=== PATIENT | male | born 1945 | race Caucasian/White ===

== ENCOUNTER 2018-07-05 04:47 | Inpatient (IN) ==
--- NOTE | 2018-06-24 16:08 | PAT Medication Instructions ---
Medication Instructions Date of Service June 24, 2018 Home Medications albuterol sulfate 1 inh INHALATION QID PRN aspirin 81 mg PO QAM atorvastatin 40 mg PO PM cholecalciferol (vitamin D3) 1,000 unit PO DAILY clopidogrel [Plavix] 75 mg PO QAM lisinopril 10 mg PO HS metoprolol tartrate 25 mg PO BID mometasone-formoterol [Dulera] 2 puff INHALATION BID nitroglycerin [Nitrostat] 1 tab SUBLINGUAL UD PRN omeprazole 20 mg PO QAM ASK your prescriber and surgeon aspirin 81 mg PO QAM clopidogrel [Plavix] 75 mg PO QAM DO NOT take the morning of surgery cholecalciferol (vitamin D3) 1,000 unit PO DAILY Take morning of surgery With a small sip of water, OTHERWISE NOTHING TO EAT OR DRINK AFTER MIDNIGHT: albuterol sulfate 1 inh INHALATION QID PRN (if needed, and bring with you to the hospital) metoprolol tartrate 25 mg PO BID mometasone-formoterol [Dulera] 2 puff INHALATION BID nitroglycerin [Nitrostat] 1 tab SUBLINGUAL UD PRN (if needed) omeprazole 20 mg PO QAM Take evening before surgery atorvastatin 40 mg PO PM lisinopril 10 mg PO HS albuterol sulfate 1 inh INHALATION QID PRN (if needed) metoprolol tartrate 25 mg PO BID mometasone-formoterol [Dulera] 2 puff INHALATION BID nitroglycerin [Nitrostat] 1 tab SUBLINGUAL UD PRN (if needed) Other Notes If you have any questions please call us at [phone] or [phone] or [phone] or [phone]
--- NOTE | 2018-06-27 08:54 | Anesthesiology Consultation ---
Date of Service June 27, 2018 Assessment & Plan (1) Encounter for pre-operative examination: Plan: -Patient seen by cardiology for rountine follow-up on 04/21 c/o CP with exertion. Ischemic workup done and was negative. -Per surgeon's office, Plavix to be held x 5 days prior to surgery. Cardiology made aware. Chart Review Chart Review: Acceptable Risk for Surgery and Patient seen in Pre Admission Testing Teaching & Discussion Instructed NPO after midnight before surgery, except medications with 15 cc of water. Medication instructions provided according to the PAT guidelines. History Surgery Operation Date: 07/05/18 07:00 Proposed Procedures p Laparoscopic-Assisted Right Colon Resection - Luis Alberto Leonardo MD, FACS Height/Weight Height: 5 ft 8 in Weight: 69.7 kg Allergies Allergy/AdvReac Type Severity Reaction Status Date / Time No Known Allergies Allergy Verified 06/24/18 08:25 Medications Home Medications Medication Instructions Recorded Confirmed Last Taken albuterol sulfate 1 inh INHALATION QID PRN 06/24/18 06/24/18 Unknown aspirin 81 mg PO QAM 06/24/18 06/24/18 Unknown atorvastatin 40 mg PO PM 06/24/18 06/24/18 Unknown cholecalciferol (vitamin D3) 1,000 unit PO DAILY 06/24/18 06/24/18 Unknown [Vitamin D3] clopidogrel [Plavix] 75 mg PO QAM 06/24/18 06/24/18 Unknown lisinopril 10 mg PO HS 06/24/18 06/24/18 Unknown metoprolol tartrate 25 mg PO BID 06/24/18 06/24/18 Unknown mometasone-formoterol [Dulera] 2 puff INHALATION BID 06/24/18 06/24/18 Unknown nitroglycerin [Nitrostat] 1 tab SUBLINGUAL UD PRN 06/24/18 06/24/18 Unknown omeprazole 20 mg PO QAM 06/24/18 06/24/18 Unknown Past Medical History Medical History CAD (coronary artery disease) Chronic obstructive pulmonary disease Stable on Dulera BID GERD (gastroesophageal reflux disease) History of skin cancer MOLE EXCISION Hyperlipidemia Hypertension Myocardial Infarction Inferior wall NE 06/2005, s/p PCI of prox and distal RCA with 2 PALMIRA. Inferior wall NE 03/2011, s/p balloon angioplasty of RCA. Past Surgical History Surgical History History of cardiac cath 2005, 2010 History of colonoscopy Past Anesthesia History No Hx of Anesthesia Complications and No Family Hx of Anesthesia Complications History of PONV No Motion Sickness Screening History of Motion Sickness: Yes Social History Smoking Status: Former smoker tobacco type: cigarettes Smoking cigarettes per day: HX OF 1PPD X20 YEARS, QUIT 6 YEARS AGO Do You Dip or Chew Tobacco: No Hx Alcohol Use: Yes Alcohol type: other alcohol intake frequency: a few times a month Hx Substance Use: No substance use type: does not use Exercise / Class Metabolic Activity II 4-5 Yardwork/Stairs/Walk up hill (Denies CP or SOB with yardwork/housework. No stairs at home.) Review of Systems Pt denies any recent chest pain, shortness of breath, palpitations, cough, fever or URI. Physical Exam Vital Signs BP: 125/76 P: 55bpm SPO2: 96% RA T: 97.9 F R: 18 ENMT Mouth: + dentures and + edentulous Thyromental Distance: > or= 3.5 Finger Breadths (3.5) Mallampati Class: II Neck normal visual inspection and + limited neck extension Respiratory normal respiratory effort Auscultation: lungs clear to auscultation bilaterally and + bronchovesicular breath sounds; no rales, no rhonchi and no wheezes Cardiovascular Rate/Rhythm: regular rate and regular rhythm Heart Sounds: no murmur Vessels: no carotid bruit Extremities: no edema Testing Electrocardiogram Date: 04/21/18 Findings: + SB @ (52) Echocardiogram Date: 04/25/18 EF: 55-59% Examination is adequate to evaluate the referral indication. LV cavity size is normal. The wall thickness is moderately increased in segments with normal wall motion. There is a moderate sized inferior and posterior basal wall motion abnormality with mild hypokinesis to akinesis of the segments. There is a small sized posterior scar. The regional left ventricular wall motion is otherwise normal. Grade 1 diastolic dysfunction. Mild aortic valve sclerosis is present. Mild secondary mitral regurg is present. Stress Test Date: 04/25/18 Type: nuclear Resting EF: 67% Myocardial perfusion imaging is normal. Overall left ventricular systolic function was normal without regional wall motion abnormalities. Other Testing Chest CT 04/23/18 Severe emphysema with areas of scarring within the lungs. Calcific lesions along the pleura may be due to to prior asbestos exposure or infection. Hypervascular liver lesions most likely represent hemangiomas. *Pt denies any recent infectious symptoms. Carotid Doppler 06/27/18 No hemodynamically significant stenosis seen within the carotid arteries. Laboratory Results Blood Type B Positive 06/27/18 09:10 Antibody Screen NEGATIVE 06/27/18 09:10 05/30/18 WBC: 7.52 H/H: 16.0/49.3 PLATELETS: 242 SODIUM: 141 POTASSIUM: 4.1 CHLORIDE: 103 CO2: 27 BUN: 10 CREATININE: 0.9 GLUCOSE: 117
[2018-06-27 10:30] LABS: Bilirubin Direct 0.1 mg/dl (0-0.2); Bilirubin,Total 0.4 mg/dl (0.2-1); Total Protein 7.2 gm/dl (6.4-8.2)
[2018-07-05] MEDS ORDERED: LR 15ML/HR IV SCH (06:00)
--- NOTE | 2018-07-05 06:18 | History & Physical Bridge Note ---
Date of Service July 05, 2018 History & Physical Bridge Note I have examined the patient, reviewed the History & Physical and in the interval since the performance of the History & Physical I have noted the following changes of clinical significance: no changes noted family at bedside all questions answered
[2018-07-05] MEDS ORDERED: LIDOCAINE HCL 2% 2 ML VIAL/AMP(20MG/ML) INFIL ONE (06:35)
[2018-07-05] MEDS ORDERED: NEOSTIGMINE METHYLSULFATE 5 MG/5 ML SYR ONE (06:35)
[2018-07-05] MEDS ORDERED: SUCCINYLCHOLINE CHLORIDE 20 MG/ML 10 ML VIAL ONE (06:35)
[2018-07-05] MEDS ORDERED: ONDANSETRON INJ 2 MG/ML 2 ML VIAL ONE (06:35)
[2018-07-05] MEDS ORDERED: PROPOFOL IV EMULSION 10 MG/ML 20 ML VIAL IV ONE ×2 (06:35→10:21)
[2018-07-05] MEDS ORDERED: DEXAMETHASONE SOD INJ 4 MG/ML VIAL ONE (06:35)
[2018-07-05] MEDS ORDERED: GLYCOPYRROLATE 0.2 MG/ML VIAL ONE (06:35)
[2018-07-05] MEDS ORDERED: CISATRACURIUM BESYLATE IV SOLN 2 MG/ML 10 ML VIAL IV ONE (06:35)
[2018-07-05] MEDS ORDERED: fentaNYL citrate 100 MCG/2 ML VIAL ONE ×2 (06:36→07:46)
[2018-07-05] MEDS ORDERED: MIDAZOLAM HCL 1 MG/ML 2ML VIAL ONE (06:36)
[2018-07-05] MEDS ORDERED: BUPIVACAINE 0.5 % 5 MG/1 ML MPF 30ML VIAL ONE (06:59)
[2018-07-05] MEDS ORDERED: PHENYLEPHRINE 100MCG/ML 5ML SYR ONE (07:34)
[2018-07-05] MEDS ORDERED: cefOXitin 2,000 MG in DEXTROSE 5% 50 ML IV STA (07:56)
[2018-07-05] MEDS ORDERED: HYDROmorphone INJ 2 MG/ML SYR/VIAL ONE (08:00)
[2018-07-05] MEDS ORDERED: cefOXitin 2,000 MG in DEXTROSE 5% 50 ML IV SCH (08:15)
[2018-07-05] MEDS ORDERED: ePHEDrine sulfate 50 MG/ML AMP IV PRN (08:52)
[2018-07-05] MEDS ORDERED: ONDANSETRON INJ 2 MG/ML 2 ML VIAL IV PRN (08:52)
[2018-07-05] MEDS ORDERED: HYDROmorphone INJ 1 MG/ML SYRINGE IV PRN (08:52)
[2018-07-05] MEDS ORDERED: ATROPINE SULFATE 0.1 MG/ML 10ML SYR IV PRN (08:52)
[2018-07-05] MEDS ORDERED: ALBUMIN HUMAN 5% 12.5 GM/250 ML VIAL IV ONE (09:19)
[2018-07-05] MEDS ORDERED: ePHEDrine sulfate 50 MG/ML AMP ONE (09:26)
[2018-07-05] MEDS ORDERED: PHENYLEPHRINE HCL 10 MG/ML VIAL ONE (09:26)
[2018-07-05] MEDS ORDERED: ALBUTEROL HFA INHALER 8.5 GM ONE (09:26)
--- NOTE | 2018-07-05 10:37 | Post Operative Brief Note ---
Immediate Post Op Note v1 Date of Surgery July 05, 2018 Pre & Post Diagnosis Operation Date: 07/05/18 07:00 Pre-Op Diagnosis: Right Colon Mass Post-Op Diagnosis: Right Colon Mass Procedure Operation Date: 07/05/18 07:00 Actual Procedures p Open Right Colon Resection, laparoscopy, hepatic flexure, part of transverse colon - Luis Alberto Leonardo MD, FACS Surgeon Luis Alberto Leonardo MD, FACS Manager Of Project Management b gerry silver Estimated Blood Loss 500 Findings Consistent with Post-Op Diagnosis Drains Dandy Drain and Iniguez Catheter
--- NOTE | 2018-07-05 10:38 | Post Operative Brief Note ---
Immediate Post Op Note v1 Date of Surgery July 05, 2018 Pre & Post Diagnosis Operation Date: 07/05/18 07:00 Pre-Op Diagnosis: Right Colon Mass Post-Op Diagnosis: Right Colon Mass Procedure Operation Date: 07/05/18 07:00 Actual Procedures p Open Right Colon Resection, laparoscopy, hepatic flexure, part of transverse colon - Luis Alberto Leonardo MD, FACS Surgeon Luis Alberto Leonardo MD, FACS Milking Machine Technician b gerry silver Estimated Blood Loss 500 Findings Consistent with Post-Op Diagnosis Drains Dandy Drain and Iniguez Catheter
--- NOTE | 2018-07-05 11:07 | Operative Report ---
Post Operative Report Pre & Post Diagnosis Operation Date: 07/05/18 07:00 Pre-Op Diagnosis: Right Colon Mass Post-Op Diagnosis: Right Colon Mass Procedure Operation Date: 07/05/18 07:00 Actual Procedures p Open Right Colon Resection, laparoscopy, hepatic flexure, part of transverse colon - Luis Alberto Leonardo MD, FACS The patient was brought into the operating theater under general anesthesia Iniguez catheter inserted antibiotics given a timeout was had an incision was made above the umbilicus sufficient enough to place a Veress needle followed by CO2 followed by 5 mm trocar point entry inspected no injury identified we then visualized the diaphragmatic surfaces liver both gutters down in the pelvic area there is no fluid no evidence of any metastatic disease at this point we removed the laparoscope and enlarged the incision at the bedside approximately 4 inches deepened through subcutaneous tissue into the abdomen once we were in the abdomen we could feel a very hard mass right colon it was nearly impossible to move it we also extended and palpated the mass and it seemed to be going towards the root of air mesentery really hard to define the limits at this point we then placed the Bookwalter were able then to divide the white line of Toldt laterally start delivering the mass went down towards the diaphragmatic surface of the liver surface with some adhesions to the liver were taken down we then elevated from the second portion of the duodenum which was fairly free but going down towards the floor portion it was strictly adherent this point we then decided to use a different avenue to resected when done in the freed the peritoneum down the pelvic brim were able to identify the ureter were placed in traction with a vessel loop and the ureter itself in the midportion was started to be encased by this inflammatory process or malignancy we were able to free it up usually pleasant dissection and did not seem to be directly related to the hard mass and may be in we then divided the terminal ileum approximately 5 inches from the ileocecal valve with a DINA stapler divided the mesentery to try to approach this mass from the undersurface which we had some difficulty just moving in utilizing this mass is characteristic. We at this point then decided to a were from the transverse colon area where we were able to divide the omentum and the transverse colon ligated with 2-0 silk then just right of the middle colic we were able to divide the DINA to resect this: We then continued down to the mesentery of the colon down to the root of the mesentery where the mass was firmly adherent and seemed to be almost gone inside the pancreas is grossly while we are and scored both areas of the mesentery from inferiorly and posterior superiorly we then went down towards the ligament of Treitz we can identify the duodenum and placed the finger there and there was marked inflammation really sclerotic areas onto the duodenum itself in the third portion not of all the ligament of Treitz we then start taken down the root of the mesentery that was going into the area that we had outlined scarring the peritoneum over nearly towards the identified the splenic vein stayed away from it stayed on top of the pancreas some bleeders going down towards the root of mesentery toward we dissection was taken out we ligated. We were to the right of the SMA. The colon which this was stated we took the middle colic we left middle colic where the right of it was a viable throughout the procedure then we worked from both ways from the middle and laterally to finally we were able to free up the mass total from the duodenum and pancreatic area fibrotic sheath was drawn the second portion of the duodenum pretty much we used a knife to free that up I took a biopsy of that area and it showed that this was basically no evidence of malignancy just a very sclerotic process. 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 Audible pulsation but there was some distal ischemia think this was all related that sacrifice of the mesentery that we had taken. We resected the small bowel x2 times further areas that seemed ischemic and we did anastomosis left first closing the mesentery to this loops of bowel 3 -0 suture staying away from the vessels oversewed the 2 staple line with 3-0 silk suture and a [id number] anastomosis 3-0 silk through a chromic inner layer the small bowel and one area appeared to be little ischemia proximal to the staple line and the anastomosis but it was very hard to tell therefore I elected to place some fat around both of the anastomosis time it loosely with 3- 0 silk anastomosis was placed we checked the area for hemostasis some venous bleeders were again appreciated when the patient was awakened up and started to block we oversewed with 3-0 silk suture I elected to drain a German drain in the top of the duodenum and the pancreatic area taken out to the right upper quadrant port central skin edge with 3-0 silk suture the abdomen was closed with a running #1 PDS one cephalad one could that time the middle piece of bowel 19 Dandy was placed in the subcu tension distal approximately 2-0 silk nettie for skin edges dressing was applied procedure was tolerated well by the patient estimated blood loss approximately 500 cc addendumB Rodrigo KESSLER was present throughout the procedure helped with the exposure retraction and closure Surgeon Luis Alberto Leonardo MD, FACS Dovetail Machine Operator b rodrigo kessler Estimated Blood Loss 500 Findings Consistent with Post-Op Diagnosis Specimens right colon hep flexure to middle colic, small bowel resection x 3 Description of Procedure merda I attest to the content of the Intraoperative Record and any orders documented therein. Any exceptions are noted below.
[2018-07-05] MEDS ORDERED: SODIUM CHLORIDE 0.9% 1000ML 1,000 ML IV ONE (11:15)
[2018-07-05] MEDS: fentaNYL citrate 100 MCG/2 ML VIAL IV PRN ×4 (11:26→11:47)
--- NOTE | 2018-07-05 11:55 | Anesthesiology Progress Note ---
Date of Service July 05, 2018 Anesthesia Post Procedure Vital Signs Vital Signs: Temp Pulse Pulse Resp BP Pulse Ox 07/05/18 11:50 85 14 100/66 96 07/05/18 11:40 81 22 100/63 96 07/05/18 11:30 79 15 97/62 L 97 07/05/18 11:20 80 19 99/62 L 96 07/05/18 11:10 86 21 94/66 L 96 07/05/18 11:00 89 13 99/68 L 97 07/05/18 10:54 36.0 C L 94 H 20 98/71 L 95 07/05/18 05:25 36.4 C L 61 18 131/86 96 Pain Intensity Bilateral Abdomen: Pain Intensity: 5 Notes Mental Status: alert / awake / arousable and participated in evaluation Nausea / Vomiting: adequately controlled Pain: adequately controlled Airway Patency, RR, SpO2: stable & adequate BP & HR: stable & adequate Hydration State: stable & adequate Anesthetic Complications: no major complications apparent and Pt Satisfied with anesthetic care Notes: The patient is s/p lap to open colon resection with Dr. Leonardo. The patient is doing well in recovery. Pain is being managed adequately with IV fentanyl and Dilaudid. The patient's BPs have remained stable in the low 100s/ 60s which is close to his baseline as BP prior to induction was 98/70. The patient had 500cc EBL, he has received 3300cc crystalloid and 500cc 5 % Albumin. Hemoglobin/Hematocrit pending, however starting Hgb was 16.0. The patient will be transferred to telemetry for closer monitoring.
[2018-07-05 12:01] LABS: Hemoglobin 11.6 g/dL (14.0-18.0)
[2018-07-05] MEDS ORDERED: NITROGLYCERIN SL 0.4 MG/TAB TAB SL PRN (13:30)
[2018-07-05] MEDS ORDERED: NALOXONE HCL 0.4 MG/1 ML VIAL/CARP IV PRN (13:30)
[2018-07-05] MEDS: LACTATED RINGER'S 1,000 ML IV SCH ×2 (13:30→19:30)
[2018-07-05] MEDS ORDERED: ALBUTEROL HFA 8 GM INHALER INH PRN (14:00)
[2018-07-05] MEDS: PANTOprazole 40 MG in SYRINGE 0 ML IV SCH (14:02)
[2018-07-05] MEDS: cefOXitin 2,000 MG in DEXTROSE 5% 50 ML IV SCH ×2 (14:02→20:05)
[2018-07-05] MEDS ORDERED: SODIUM CHLORIDE 0.9% 250 ML IV PRN (14:34)
[2018-07-05] MEDS: SODIUM CHLORIDE 0.9% 1000ML 1,000 ML IV SCH (15:00)
[2018-07-05] MEDS: MoRPHine SULFATE PCA 50 MG/50ML IV PRN ×2 (15:11→19:23)
[2018-07-05] MEDS: METOPROLOL TARTRATE 25 MG TAB PO SCH (20:06)
[2018-07-05 22:12] LABS: Hematocrit (blood only) 36.2 % (42-52); Hemoglobin 11.7 g/dL (14.0-18.0)
[2018-07-06] MEDS: LACTATED RINGER'S 1,000 ML IV SCH ×4 (02:24→23:28)
[2018-07-06] MEDS: cefOXitin 2,000 MG in DEXTROSE 5% 50 ML IV SCH ×4 (02:25→20:51)
[2018-07-06 07:11] LABS: Basophils # (auto) 0.01 K/uL (0-0.2); Basophils % (auto) 0.1 %; Hematocrit (blood only) 31.4 % (42-52); Hemoglobin 10.2 g/dL (14.0-18.0); Immature Granulocytes # (auto) 0.04 K/uL (0.00-0.02); Immature Granulocytes % (auto) 0.3 %; Lymphocytes # (auto) 0.99 K/uL (1.2-3.4); Lymphocytes % (auto) 6.8 %; Mean Corpuscular Hgb Conc 32.5 g/dL (32-36); Mean Corpuscular Volume 77.3 fL (80-100); Mean Platelet Volume 10.1 fL (7.4-10.4); Monocytes # (auto) 1.15 K/uL (0.11-0.59); Monocytes % (auto) 7.9 %; Neutrophils # (auto) 12.31 K/uL (1.4-6.5); Neutrophils % (auto) 84.9 %; Platelet Count 197 K/uL (130-400); RDW Coefficient of Variation 15.6 % (11.5-14.5); Red Blood Count 4.06 M/uL (4.7-6.1)
[2018-07-06] MEDS: MoRPHine SULFATE PCA 50 MG/50ML IV PRN (07:26)
[2018-07-06 07:45] LABS: BUN Creatinine Ratio 20.7 (10-20); Calcium 7.8 mg/dl (8.5-10.1); Creatinine Clr Calc Pharmacy 41.3 ml/min; Est GFR (African American) 52.4; Est GFR (Non-African American) 45.2; Potassium 4.6 mmol/L (3.5-5.1)
--- NOTE | 2018-07-06 08:21 | Anesthesiology Progress Note ---
Date of Service July 06, 2018 Anesthesia Post Procedure Vital Signs Vital Signs: Temp Pulse Pulse Resp BP Pulse Ox 07/06/18 06:41 36.9 C 73 18 118/70 94 07/06/18 02:48 36.9 C 77 18 109/70 94 07/06/18 00:05 36.8 C 79 18 111/66 97 07/05/18 19:48 36.8 C 92 H 17 102/66 97 07/05/18 15:28 36.4 C L 92 H 17 105/70 97 07/05/18 15:00 88 14 103/70 97 07/05/18 14:30 88 18 106/71 95 07/05/18 13:56 89 16 104/67 95 07/05/18 13:48 92 H 07/05/18 13:30 36.2 C L 88 16 106/69 94 07/05/18 12:50 85 20 98/66 L 97 07/05/18 12:40 84 15 101/66 97 07/05/18 12:30 85 15 96/69 L 95 07/05/18 12:20 86 17 107/59 L 96 07/05/18 12:10 85 17 106/59 L 96 07/05/18 12:00 36.2 C L 85 22 119/64 96 07/05/18 11:50 85 14 100/66 96 07/05/18 11:40 81 22 100/63 96 07/05/18 11:30 79 15 97/62 L 97 07/05/18 11:20 80 19 99/62 L 96 07/05/18 11:10 86 21 94/66 L 96 07/05/18 11:00 89 13 99/68 L 97 07/05/18 10:54 36.0 C L 94 H 20 98/71 L 95 Pain Intensity Bilateral Abdomen: Pain Intensity: 0 Notes Mental Status: alert / awake / arousable Patient Amnestic to Procedure: Yes Nausea / Vomiting: adequately controlled Pain: adequately controlled Airway Patency, RR, SpO2: stable & adequate BP & HR: stable & adequate Hydration State: stable & adequate Anesthetic Complications: no major complications apparent and Pt Satisfied with anesthetic care
[2018-07-06] MEDS: METOPROLOL TARTRATE 25 MG TAB PO SCH ×2 (08:45→20:51)
[2018-07-06] MEDS ORDERED: ASPIRIN 81 MG ECTAB PO SCH (09:00)
--- NOTE | 2018-07-06 09:43 | Surgery Progress Note ---
Date of Service July 06, 2018 Assessment & Plan (1) Colonic mass: POD 1 right colectomy, partial SB rsxn seen with Dr. Leonardo keep NG, duggan, RN ELIGIBILITY H&H down slightly, continue to monitor UOP adequate Subjective no complaints, pain control ok Physical Exam 2 Vital Signs (Past 24 Hours): Last Vital Signs Temp 36.9 C 07/06/18 06:41 Pulse 73 07/06/18 06:41 Resp 18 07/06/18 06:41 BP 118/70 07/06/18 06:41 Pulse Ox 94 07/06/18 06:41 Gastrointestinal (Abdomen): Inspection/Auscultation: + abdominal surgical incision (dressing dry); abdomen not distended Percussion/Palpation: abdomen soft UOP 300 AMPARO 100
[2018-07-06] MEDS: PANTOprazole 40 MG in SYRINGE 0 ML IV SCH (11:20)
--- NOTE | 2018-07-06 12:16 | Consultation ---
Date of Consultation July 05, 2018 Assessment & Plan (1) Acute intestinal ischemia: At this point there is no intervention needed for the inflow. There is excellent Doppler signals heard in the superior mesenteric artery and the arcades of the viable section. We agree with the plans of resecting the discolored portion of small bowel prior to doing the anastomosis. Thank you very much for letting us participate in the care of this patient. History of Present Illness Reason for Consultation: Ischemic bowel. Attending Physician: Luis Alberto Leonardo MD, FACS History of Present Illness This was an intraoperative consultation on a 73-year-old male who is undergoing an excision of a large mass involving his retroperitoneum and mesentery. There is a question of intestinal ischemia in regards to arterial inflow. Allergies Allergy/AdvReac Type Severity Reaction Status Date / Time No Known Allergies Allergy Verified 07/05/18 05:21 Home Medications Home Medications Medication Instructions Recorded Confirmed Type albuterol sulfate 1 inh INHALATION QID PRN 06/24/18 07/05/18 History aspirin 81 mg PO QAM 06/24/18 07/05/18 History atorvastatin 40 mg PO PM 06/24/18 07/05/18 History cholecalciferol (vitamin D3) 1,000 unit PO DAILY 06/24/18 07/05/18 History [Vitamin D3] clopidogrel [Plavix] 75 mg PO QAM 06/24/18 07/05/18 History lisinopril 10 mg PO HS 06/24/18 07/05/18 History metoprolol tartrate 25 mg PO BID 06/24/18 07/05/18 History mometasone-formoterol [Dulera] 2 puff INHALATION BID 06/24/18 07/05/18 History nitroglycerin [Nitrostat] 1 tab SUBLINGUAL UD PRN 06/24/18 07/05/18 History omeprazole 20 mg PO QAM 06/24/18 07/05/18 History erythromycin 1,000 mg PO DIRECTED 07/05/18 07/05/18 History neomycin 1,000 mg PO DIRECTED 07/05/18 07/05/18 History Patient History Medical History CAD (coronary artery disease) Chronic obstructive pulmonary disease Stable on Dulera BID GERD (gastroesophageal reflux disease) History of skin cancer MOLE EXCISION Hyperlipidemia Hypertension Myocardial Infarction Inferior wall [place] 06/2005, s/p PCI of prox and distal RCA with 2 PALMIRA. Inferior wall LA 03/2011, s/p balloon angioplasty of RCA. Surgical History History of cardiac cath 2005, 2010 History of colonoscopy Social History Current Living Situation: Spouse Other Information That Helps Us Care for You: No Feels Safe at Home: Yes Safety Concerns: Feels Safe At This Time Smoking Status: Former smoker Do You Dip or Chew Tobacco: No Hx Alcohol Use: Yes Alcohol type: other Alcohol Intake Frequency: a few times a month Hx Substance Use: No Beliefs That Will Affect Care: None Preferred Language: Scottish Communication Ability: Effective Hot Patcher Required: No Review of Systems Unobtainable Physical Exam 2 Vital Signs (Past 24 Hours): Last Vital Signs Temp 36.8 C 07/06/18 10:50 Pulse 54 L 07/06/18 10:50 Resp 16 07/06/18 10:50 BP 105/64 07/06/18 10:50 Pulse Ox 96 07/06/18 10:50 The patient is under general anesthesia with an open laparotomy incision. At this point after the intestines were warmed the proximal small bowel was viable. There is excellent Doppler signals heard in the superior mesenteric artery as well as the arcades and mesenteric border of the viable bowel. There is approximately 100 cm distally of small bowel that appeared purplish with poor Doppler signals. The majority of small bowel was viable.
[2018-07-06 15:00] LABS: Hematocrit (blood only) 30.2 % (42-52); Hemoglobin 9.7 g/dL (14.0-18.0)
[2018-07-07] MEDS: cefOXitin 2,000 MG in DEXTROSE 5% 50 ML IV SCH ×4 (01:28→22:11)
[2018-07-07 04:53] LABS: Basophils # (auto) 0.01 K/uL (0-0.2); Basophils % (auto) 0.1 %; Eosinophils # (auto) 0.11 K/uL (0-0.5); Eosinophils % (auto) 0.9 %; Hematocrit (blood only) 29.4 % (42-52); Hemoglobin 9.5 g/dL (14.0-18.0); Immature Granulocytes # (auto) 0.03 K/uL (0.00-0.02); Immature Granulocytes % (auto) 0.2 %; Lymphocytes # (auto) 1.71 K/uL (1.2-3.4); Lymphocytes % (auto) 14.2 %; Mean Corpuscular Hgb Conc 32.3 g/dL (32-36); Mean Corpuscular Volume 77.8 fL (80-100); Mean Platelet Volume 10.1 fL (7.4-10.4); Monocytes # (auto) 1.04 K/uL (0.11-0.59); Monocytes % (auto) 8.6 %; Neutrophils # (auto) 9.15 K/uL (1.4-6.5); Platelet Count 162 K/uL (130-400); RDW Coefficient of Variation 15.7 % (11.5-14.5); RDW Standard Deviation 44.5 fL (36.4-46.3); Red Blood Count 3.78 M/uL (4.7-6.1); White Blood Count 12.05 K/uL (4.8-10.8)
[2018-07-07 05:22] LABS: BUN Creatinine Ratio 17.5 (10-20); Calcium 7.7 mg/dl (8.5-10.1); Creatinine Clr Calc Pharmacy 53.3 ml/min; Est GFR (African American) 71.5; Est GFR (Non-African American) 61.7; Potassium 4.1 mmol/L (3.5-5.1)
[2018-07-07] MEDS: LACTATED RINGER'S 1,000 ML IV SCH ×3 (05:58→22:07)
[2018-07-07] MEDS: ASPIRIN 81 MG CHEW PO SCH (08:04)
[2018-07-07] MEDS: METOPROLOL TARTRATE 25 MG TAB PO SCH ×2 (08:05→22:08)
--- NOTE | 2018-07-07 10:04 | Surgery Progress Note ---
Date of Service July 07, 2018 Assessment & Plan (1) Colonic mass: POD 2 right colectomy, partial SB rsxn seen this AM by Dr. Leonardo keep NG until passing flatus H&H down slightly, continue to monitor DRAIN FROM SUB CUT REMOVED Subjective sitting in chair, feeling better, no flatus Physical Exam 2 Vital Signs (Past 24 Hours): Last Vital Signs Temp 36.6 C 07/07/18 07:48 Pulse 77 07/07/18 07:48 Resp 18 07/07/18 07:48 BP 135/80 07/07/18 07:48 Pulse Ox 95 07/07/18 07:48 Gastrointestinal (Abdomen): Inspection/Auscultation: + abdominal surgical incision (dressing dry); abdomen not distended AMPARO 50 becoming more serous UOP 950 NG 200
[2018-07-07] MEDS: PANTOprazole 40 MG in SYRINGE 0 ML IV SCH ×2 (12:03→22:07)
[2018-07-07] MEDS: SODIUM CHLORIDE 0.9% 1000ML 1,000 ML IV SCH ×2 (12:09→13:39)
[2018-07-07] MEDS: MOMETASONE/FORMOTEROL INH SCH (22:08)
[2018-07-08] MEDS: cefOXitin 2,000 MG in DEXTROSE 5% 50 ML IV SCH ×4 (02:04→20:16)
[2018-07-08] MEDS: LACTATED RINGER'S 1,000 ML IV SCH ×3 (02:06→20:16)
[2018-07-08 07:39] LABS: Basophils # (auto) 0.03 K/uL (0-0.2); Basophils % (auto) 0.3 %; Eosinophils # (auto) 0.32 K/uL (0-0.5); Eosinophils % (auto) 3.1 %; Hematocrit (blood only) 30.7 % (42-52); Hemoglobin 10.1 g/dL (14.0-18.0); Immature Granulocytes # (auto) 0.03 K/uL (0.00-0.02); Immature Granulocytes % (auto) 0.3 %; Lymphocytes # (auto) 1.17 K/uL (1.2-3.4); Lymphocytes % (auto) 11.3 %; Mean Corpuscular Hgb Conc 32.9 g/dL (32-36); Mean Corpuscular Volume 77.3 fL (80-100); Monocytes # (auto) 0.82 K/uL (0.11-0.59); Monocytes % (auto) 7.9 %; Neutrophils # (auto) 7.96 K/uL (1.4-6.5); Neutrophils % (auto) 77.1 %; Platelet Count 174 K/uL (130-400); RDW Coefficient of Variation 15.1 % (11.5-14.5); Red Blood Count 3.97 M/uL (4.7-6.1); White Blood Count 10.33 K/uL (4.8-10.8)
[2018-07-08 08:13] LABS: BUN Creatinine Ratio 16.9 (10-20); Creatinine Clr Calc Pharmacy 69.7 ml/min; Est GFR (African American) 97.2; Est GFR (Non-African American) 83.8; Potassium 3.7 mmol/L (3.5-5.1)
[2018-07-08] MEDS: PANTOprazole 40 MG in SYRINGE 0 ML IV SCH ×2 (08:20→20:17)
[2018-07-08] MEDS: METOPROLOL TARTRATE 25 MG TAB PO SCH ×2 (08:21→20:18)
[2018-07-08] MEDS: ASPIRIN 81 MG CHEW PO SCH (08:21)
[2018-07-08] MEDS: MOMETASONE/FORMOTEROL INH SCH ×2 (08:21→20:17)
--- NOTE | 2018-07-08 08:24 | Surgery Progress Note ---
Date of Service July 08, 2018 Assessment & Plan (1) Colonic mass: POD 3 right colectomy, partial SB rsxn seen with Dr. Leonardo d/Geetha Sanon H&H stable 03/15, Cr normalized PT/OT clear liquids, IV decreased to 80 cc/hr will remove drain later today Subjective no complaints, passing flatus Physical Exam 2 Vital Signs (Past 24 Hours): Last Vital Signs Temp 36.6 C 07/08/18 07:32 Pulse 81 07/08/18 07:32 Resp 18 07/08/18 07:32 BP 148/87 H 07/08/18 07:32 Pulse Ox 92 07/08/18 07:32 Gastrointestinal (Abdomen): Inspection/Auscultation: + abdomen distended ( minimal) Percussion/Palpation: abdomen soft UOP 800 Dandy 50 cc, serosang
[2018-07-08] MEDS: TAMSULOSIN HCL 0.4 MG CAP PO SCH (12:59)
[2018-07-08] MEDS: SODIUM CHLORIDE 0.9% 1000ML 1,000 ML IV SCH (20:13)
[2018-07-09] MEDS: cefOXitin 2,000 MG in DEXTROSE 5% 50 ML IV SCH (02:18)
[2018-07-09 07:07] LABS: Basophils # (auto) 0.02 K/uL (0-0.2); Basophils % (auto) 0.2 %; Eosinophils # (auto) 0.21 K/uL (0-0.5); Eosinophils % (auto) 2.1 %; Hematocrit (blood only) 33.9 % (42-52); Hemoglobin 11.3 g/dL (14.0-18.0); Immature Granulocytes # (auto) 0.04 K/uL (0.00-0.02); Immature Granulocytes % (auto) 0.4 %; Lymphocytes # (auto) 0.93 K/uL (1.2-3.4); Lymphocytes % (auto) 9.4 %; Mean Corpuscular Hgb Conc 33.3 g/dL (32-36); Mean Corpuscular Volume 76.5 fL (80-100); Monocytes # (auto) 0.67 K/uL (0.11-0.59); Monocytes % (auto) 6.7 %; Neutrophils # (auto) 8.06 K/uL (1.4-6.5); Neutrophils % (auto) 81.2 %; Platelet Count 188 K/uL (130-400); RDW Standard Deviation 42.4 fL (36.4-46.3); Red Blood Count 4.43 M/uL (4.7-6.1); White Blood Count 9.93 K/uL (4.8-10.8)
[2018-07-09 07:45] LABS: BUN Creatinine Ratio 15.1 (10-20); Creatinine Clr Calc Pharmacy 65.2 ml/min; Est GFR (African American) 93.4; Est GFR (Non-African American) 80.6; Potassium 3.5 mmol/L (3.5-5.1)
--- NOTE | 2018-07-09 08:02 | Surgery Progress Note ---
Date of Service July 09, 2018 Assessment & Plan (1) Colonic mass: POD 4 gi function and peristalsis slow will need to watch closely check prp d/c mefoxin increase iv fluids Dr Casiano covering weekend POD 3 right colectomy, partial SB rsxn seen with Dr. Leonardo d/c Geetha HAGAN H&H stable 03/15, Cr normalized PT/OT clear liquids, IV decreased to 80 cc/hr will remove drain later today Subjective feels ok tolerated diet yesterday had multiple loose stools as expected some abd pain Physical Exam 2 Vital Signs (Past 24 Hours): Last Vital Signs Temp 36.7 C 07/09/18 07:07 Pulse 104 H 07/09/18 07:07 Resp 18 07/09/18 07:07 BP 104/72 07/09/18 07:53 Pulse Ox 92 07/09/18 07:07 Physical Exam: lalert coherent in no distress abd pain with movement Gastrointestinal (Abdomen): distended more so than yesterday no loc tendernss incision intact had some serous drainage from conrad drain site Results & Data Laboratory Results noted will check prp
[2018-07-09] MEDS: MOMETASONE/FORMOTEROL INH SCH ×2 (08:10→19:49)
[2018-07-09] MEDS: ONDANSETRON INJ 2 MG/ML 2 ML VIAL IV PRN ×2 (08:10→13:09)
[2018-07-09] MEDS: METOPROLOL TARTRATE 25 MG TAB PO SCH ×2 (08:10→19:50)
[2018-07-09] MEDS: PANTOprazole 40 MG in SYRINGE 0 ML IV SCH ×2 (08:10→19:49)
[2018-07-09] MEDS: TAMSULOSIN HCL 0.4 MG CAP PO SCH (08:11)
[2018-07-09] MEDS: ASPIRIN 81 MG CHEW PO SCH (08:11)
--- NOTE | 2018-07-09 10:13 | Surgery Progress Note ---
Date of Service July 09, 2018 doing fine, no abdominal pain, passed gas and BM, Assessment & Plan (1) Colonic mass: doing fine, continue treatment, will F/u Physical Exam 2 Vital Signs (Past 24 Hours): Last Vital Signs Temp 36.7 C 07/09/18 07:07 Pulse 104 H 07/09/18 07:07 Resp 18 07/09/18 07:07 BP 104/72 07/09/18 07:53 Pulse Ox 92 07/09/18 07:07 Constitutional: WD/WN, vitals as above Neck: trachea midline, no thyromegaly Respiratory: normal respiratory effort, lungs clear to auscultation Cardiovascular: RRR, no murmur, no edema Gastrointestinal (Abdomen): Percussion/Palpation: abdomen soft NT, ND , incision intact Neurologic: awake Psychiatric: Orientation: alert and oriented x 3 Results & Data Laboratory Results Abnormal lab results 07/09/18 07/09/18 Range/Units 06:43 06:43 RBC 4.43 L (4.7-6.1) M/uL Hgb 11.3 L (14.0-18.0) g/dL Hct 33.9 L (42-52) % MCV 76.5 L (80-100) fL RDW Coeff of [place] 15.0 H (11.5-14.5) % Immature Gran # (Auto) 0.04 H (0.00-0.02) K/uL Neut # (Auto) 8.06 H (1.4-6.5) K/uL Lymph # (Auto) 0.93 L (1.2-3.4) K/uL [place] # (Auto) 0.67 H (0.11-0.59) K/uL Glucose 110 H (70-99) mg/dl Calcium 8.0 L (8.5-10.1) mg/dl
--- NOTE | 2018-07-09 10:56 | XRay Report ---
XR abdomen 2V w PA chest HISTORY: 73 years-old Male post op lack peristalsis acute postoperative abdominal pain COMPARISON: CT abdomen and pelvis 06/03/2018 TECHNIQUE: PA view the chest with erect and supine views of the abdomen FINDINGS: Cardiac silhouette is enlarged, unchanged. Right Bochdalek hernia with calcified pleural plaques rede monstrated. Cardiac silhouette is mildly enlarged. Left greater than right bibasilar opacities are no kris. There is no pneumothorax, large pleural effusion or overt pulmonary edema. Degenerative changes of the shoulders and spine. Anterior midline skin nettie are noted. Dilated air-filled loops of small and large bowel with small bowel loops measuring up to 5.0 cm transversely. The stomach is also moderately distended. Large bow el loops measure up to 6.7 cm transversely. No definite pneumatosis, pneumoperitoneum or urolith. No acute fracture. IMPRESSION: 1. Air distended small and large bowel loops are suggestive of postoperative ileus. Continued follow- up recommended. 2. Bilateral pleural plaques with left greater than right bibasilar opacities suggestive of scarring/ atelectasis. Superimposed pneumonitis is considered less likely. 3. Cardiomegaly. 4. Small right Bochdalek hernia. The above report was generated using voice recognition software. It may contain grammatical, syntax o r spelling errors. Electronically signed by: Jonn Garner M.D. 07/09/2018 10:55 AM
[2018-07-09] MEDS: LACTATED RINGER'S 1,000 ML IV SCH ×2 (12:36→22:24)
--- NOTE | 2018-07-10 07:55 | Surgery Progress Note ---
Date of Service July 10, 2018 Assessment & Plan (1) Colonic mass: POD 5 increase activity keep iv fluids until oral intake better transfer to reg floor POD 4 gi function and peristalsis slow will need to watch closely check prp d/c mefoxin increase iv fluids Dr Casiano covering weekend POD 3 right colectomy, partial SB rsxn seen with Dr. Leonardo d/c Geetha HAGAN H&H stable 03/15, Cr normalized PT/OT clear liquids, IV decreased to 80 cc/hr will remove drain later today Subjective feels better than yesterday, minimal nausea multiple liquid bm oral intake minimal Physical Exam 2 Vital Signs (Past 24 Hours): Last Vital Signs Temp 36.6 C 07/10/18 07:05 Pulse 71 07/10/18 07:05 Resp 16 07/10/18 07:05 BP 108/71 07/10/18 07:05 Pulse Ox 98 07/10/18 07:05 Physical Exam: alert coherent in no distress tongue moist abdomen softer no tenderness Results & Data Laboratory Results pending from today
[2018-07-10] MEDS: PANTOprazole 40 MG in SYRINGE 0 ML IV SCH ×2 (08:26→21:14)
[2018-07-10] MEDS: TAMSULOSIN HCL 0.4 MG CAP PO SCH (08:26)
[2018-07-10] MEDS: MOMETASONE/FORMOTEROL INH SCH ×2 (08:26→21:10)
[2018-07-10] MEDS: METOPROLOL TARTRATE 25 MG TAB PO SCH ×2 (08:26→21:10)
[2018-07-10] MEDS: ASPIRIN 81 MG CHEW PO SCH (08:26)
[2018-07-10] MEDS: LACTATED RINGER'S 1,000 ML IV SCH (08:27)
[2018-07-10] MEDS: ACETAMINOPHEN W/CODEINE #3 1 TAB PO PRN ×2 (08:58→19:25)
[2018-07-10 09:21] LABS: Basophils # (auto) 0.02 K/uL (0-0.2); Basophils % (auto) 0.3 %; Eosinophils # (auto) 0.43 K/uL (0-0.5); Eosinophils % (auto) 5.6 %; Hematocrit (blood only) 34.2 % (42-52); Hemoglobin 11.2 g/dL (14.0-18.0); Immature Granulocytes # (auto) 0.05 K/uL (0.00-0.02); Immature Granulocytes % (auto) 0.6 %; Lymphocytes # (auto) 0.94 K/uL (1.2-3.4); Lymphocytes % (auto) 12.2 %; Mean Corpuscular Hgb Conc 32.7 g/dL (32-36); Mean Corpuscular Volume 77.7 fL (80-100); Mean Platelet Volume 9.7 fL (7.4-10.4); Monocytes # (auto) 0.78 K/uL (0.11-0.59); Monocytes % (auto) 10.1 %; Neutrophils % (auto) 71.2 %; Platelet Count 233 K/uL (130-400); RDW Coefficient of Variation 15.1 % (11.5-14.5); RDW Standard Deviation 43.1 fL (36.4-46.3); White Blood Count 7.72 K/uL (4.8-10.8)
[2018-07-10 09:51] LABS: BUN Creatinine Ratio 16.1 (10-20); Calcium 8.3 mg/dl (8.5-10.1); Creatinine Clr Calc Pharmacy 60.6 ml/min; Est GFR (African American) 85.6; Est GFR (Non-African American) 73.8; Potassium 3.2 mmol/L (3.5-5.1)
[2018-07-10] MEDS: CLOPIDOGREL BISULFATE 75 MG TAB PO SCH (11:14)
[2018-07-10] MEDS: D5W AND 1/2NSS + 20MEQ KCL 20 MEQ/1,000 ML BAG IV SCH ×2 (12:54→22:49)
--- NOTE | 2018-07-10 13:03 | Surgery Progress Note ---
Date of Service July 10, 2018 doing fine, some abdominal pain, no nausea, no vomiting, he tolerated diet, Assessment & Plan (1) Colonic mass: doing fine, continue treatment, will F/u 07/10/2018 matute doing fine, continue treatment Physical Exam 2 Vital Signs (Past 24 Hours): Last Vital Signs Temp 36.5 C 07/10/18 09:00 Pulse 100 H 07/10/18 09:00 Resp 16 07/10/18 09:00 BP 103/64 07/10/18 09:00 Pulse Ox 94 07/10/18 09:00 Constitutional: WD/WN, vitals as above Neck: trachea midline, no thyromegaly Respiratory: normal respiratory effort, lungs clear to auscultation Cardiovascular: RRR, no murmur, no edema Gastrointestinal (Abdomen): Percussion/Palpation: abdomen soft Neurologic: awake Psychiatric: Orientation: alert and oriented x 3
[2018-07-10] MEDS: ATORVASTATIN 40 MG TAB PO SCH (21:10)
[2018-07-11] MEDS: ONDANSETRON INJ 2 MG/ML 2 ML VIAL IV PRN ×2 (01:14→20:17)
--- NOTE | 2018-07-11 01:26 | Consultation Report ---
DATE OF ADMISSION: 07/10/2018 CHIEF COMPLAINT: Status post surgery for colon mass , consulted for low urine output. HISTORY OF PRESENT ILLNESS: A 73-year-old male with past medical history significant for hyperlipidemia, COPD, CAD, hypertension, Moreno's esophagus, history of tobacco abuse, was incidentally found to have colonic mass concerning for malignancy, status post right colectomy with partial small-bowel resection, on day 5 today, tolerated the procedure okay. The patient is on full liquid diet, but says he is not eating much because of nausea. He is having liquid stools, mild pain at surgical site. Otherwise, doing okay, not drinking much water because of nausea. Denies chest pain, no shortness of breath, occasional cough, no headache, no blurred vision, no earache, always has some runny nose, no sore throat, normal bladder movements. Currently, resting comfortably and hemodynamically stable. ALLERGIES: No known drug allergies. PAST MEDICAL HISTORY: As mentioned above. PAST SURGICAL HISTORY: Balloon angioplasty of right coronary artery, cardiac stent placements, colonoscopy with 4 benign polyps removed, EGD, currently status post right colectomy with partial small bowel resection. MEDICATIONS: The patient is on Plavix 75 mg p.o. daily, omeprazole 20 mg p.o. daily, Lipitor 40 mg p.o. daily, lisinopril 10 mg p.o. daily, Lopressor 25 mg p.o. b.i.d., Dulera 100/5 mcg 2 puffs b.i.d., vitamin D 2000 units p.o. daily, nitroglycerin 0.4 mg sublingual p.r.n., albuterol nebulization every 4 hours p.r.n., ProAir 2 puffs every 4 hours p.r.n., aspirin 81 mg p.o. daily. FAMILY HISTORY: Significant for father had bladder from bladder and prostate cancer, diabetes and hypertension. Mother has diabetes, hypertension. Brother has liver disease. SOCIAL HISTORY: , quit smoking in 2011, smoked a quarter pack for 50 years. Alcohol socially. No drug use. REVIEW OF SYMPTOMS: As per HPI. Rest of review of systems negative. PHYSICAL EXAMINATION: GENERAL: The patient is of moderate build, not in acute distress. VITAL SIGNS: Temperature 36.8, pulse 97, respiratory rate 18, blood pressure 116/79, oxygen 94% room air. HEENT: No pallor, no icterus. Pupils equal, round, and react to light. NECK: No JVD, no neck masses, no carotid bruit. CARDIOVASCULAR: S1, S2 heard, regular rate and rhythm, no murmur, no gallop. RESPIRATORY SYSTEM: Normal AP diameter. No accessory muscle use. No wheezing, no crackles. ABDOMEN: Soft, bowel sounds present. Surgical sutures seen, which are clean. No drainage seen. CENTRAL NERVOUS SYSTEM: Nonfocal. EXTREMITIES: No edema, no erythema. LABS: WBC 7.7, hemoglobin 11.2, hematocrit 34.2, platelets 233. Sodium 138, potassium 3.2, chloride 102, bicarb 24, BUN 16, creatinine 1, serum glucose 130, calcium 8.3. Chest and abdominal x-ray postoperative ileus. ASSESSMENT AND PLAN: This is a 73-year-old male who is status post right colectomy and partial small bowel resection for colon mass concerning for malignancy. Pathology is pending. The patient is currently on full liquid diet. X-ray shows ileus and not able to eat much because of nausea. We are consulted for low urine output. 1. Colonic mass concerning for malignancy, status post right colectomy with partial small bowel resection, currently on full liquid diet, postoperative ileus. He is having liquidy stools, not eating much because of nausea. patient on D5 half normal saline with 20 mEq of KCl at 100 mL per hour, to increase to 125 mL per hour and follow the labs in morning. Currently, his labs looks ok. fine. 2. Hypokalemia. On potassium supplemented with the fluids. We will follow the labs in morning. 3. History of coronary artery disease status post stents, on aspirin, Plavix, and Lopressor and statin. Currently stable. 4. History of hypertension, on Lopressor, lisinopril is on hold. We will continue to hold his lisinopril as his blood pressure on the lower side. 5. History of chronic obstructive pulmonary disease. Continue home inhalers, currently stable. 6. Hyperlipidemia. Continue statin. 7. Moreno's esophagus. Currently on proton pump inhibitor. 8. Deep venous thrombosis prophylaxis.As per surgery DISPOSITION: As per surgery. [facility]
[2018-07-11] MEDS: ACETAMINOPHEN W/CODEINE #3 1 TAB PO PRN ×3 (05:21→20:28)
[2018-07-11 05:52] LABS: Basophils # (auto) 0.02 K/uL (0-0.2); Basophils % (auto) 0.2 %; Eosinophils # (auto) 0.58 K/uL (0-0.5); Eosinophils % (auto) 4.9 %; Hematocrit (blood only) 30.2 % (42-52); Hemoglobin 9.9 g/dL (14.0-18.0); Immature Granulocytes # (auto) 0.12 K/uL (0.00-0.02); Lymphocytes # (auto) 1.96 K/uL (1.2-3.4); Lymphocytes % (auto) 16.4 %; Mean Corpuscular Hgb Conc 32.8 g/dL (32-36); Mean Corpuscular Volume 76.8 fL (80-100); Monocytes # (auto) 0.92 K/uL (0.11-0.59); Monocytes % (auto) 7.7 %; Neutrophils # (auto) 8.33 K/uL (1.4-6.5); Neutrophils % (auto) 69.8 %; Platelet Count 273 K/uL (130-400); RDW Standard Deviation 42.4 fL (36.4-46.3); Red Blood Count 3.93 M/uL (4.7-6.1); White Blood Count 11.93 K/uL (4.8-10.8)
[2018-07-11 06:21] LABS: BUN Creatinine Ratio 16.3 (10-20); Calcium 7.7 mg/dl (8.5-10.1); Creatinine Clr Calc Pharmacy 61.8 ml/min; Est GFR (African American) 87.7; Est GFR (Non-African American) 75.6; Magnesium 1.5 mg/dl (1.8-2.4)
[2018-07-11] MEDS ORDERED: POTASSIUM CHLORIDE 20 MEQ TABCR PO STA (06:40)
[2018-07-11] MEDS: MAGNESIUM SULFATE / D5W 1 GM/100 ML BAG IV SCH ×2 (07:08→08:03)
--- NOTE | 2018-07-11 07:08 | Surgery Progress Note ---
Date of Service July 11, 2018 Assessment & Plan (1) Colonic mass: POD 6 gi function slow to return may need nutritional supplement (hyper al) will try adding boost suspect edema anastomosis hope will resolve in few days POD 5 increase activity keep iv fluids until oral intake better transfer to reg floor POD 4 gi function and peristalsis slow will need to watch closely check prp d/c mefoxin increase iv fluids Dr Casiano covering weekend POD 3 right colectomy, partial SB rsxn seen with Dr. Leonardo d/c Geetha HAGAN H&H stable 03/15, Cr normalized PT/OT clear liquids, IV decreased to 80 cc/hr will remove drain later today Subjective was up and about yesterday does not feel as good today states more abd discomfort oral intake minimal continues to move bowels loose x3 Physical Exam 2 Vital Signs (Past 24 Hours): Last Vital Signs Temp 36.8 C 07/10/18 15:51 Pulse 97 H 07/10/18 21:12 Resp 18 07/10/18 15:51 BP 116/79 07/10/18 21:12 Pulse Ox 94 07/10/18 15:51 Physical Exam: alert fairly comfortable was sleeping and easily awakened well hydrated tongue moist Gastrointestinal (Abdomen): bit more distended than yesterday incision healing well Results & Data Laboratory Results seen from yesterday increased k in iv
[2018-07-11] MEDS ORDERED: POTASSIUM CHLORIDE / WTR 10 MEQ/100 ML PLCT IV STA (07:10)
[2018-07-11] MEDS: MOMETASONE/FORMOTEROL INH SCH ×2 (08:35→20:30)
[2018-07-11] MEDS: D5W AND 1/2NSS + 40MEQ KCL 40 MEQ/1,000 ML BAG IV SCH ×2 (08:35→20:30)
[2018-07-11] MEDS: TAMSULOSIN HCL 0.4 MG CAP PO SCH (08:35)
[2018-07-11] MEDS: METOPROLOL TARTRATE 25 MG TAB PO SCH ×2 (08:35→20:29)
[2018-07-11] MEDS: POTASSIUM CHLORIDE / WTR 10 MEQ/100 ML PLCT IV SCH ×2 (08:35→10:34)
[2018-07-11] MEDS: PANTOprazole 40 MG in SYRINGE 0 ML IV SCH ×2 (08:36→20:18)
[2018-07-11] MEDS: CLOPIDOGREL BISULFATE 75 MG TAB PO SCH (08:36)
[2018-07-11] MEDS: ASPIRIN 81 MG CHEW PO SCH (11:52)
--- NOTE | 2018-07-11 18:53 | Hospitalist Progress Note ---
Date of Service July 11, 2018 Assessment & Plan (1) Colonic mass: Colonic mass concerning for malignancy, Status post right colectomy with partial small bowel resection, Currently on full liquid diet, postoperative ileus. He is having liquidy stools, not eating much because of nausea. p Slow improvement Total urine output last 24 hours is more than 600 mL We will continue current management Management as per surgery Hypokalemia. On potassium supplemented with the fluids. Potassium has been supplemented Monitor History of coronary artery disease status post stents, on aspirin, Plavix, and Lopressor and statin. Currently stable. History of hypertension, on Lopressor, lisinopril is on hold. Hold his lisinopril as his blood pressure on the lower side. History of chronic obstructive pulmonary disease. Continue home inhalers, currently stable. Hyperlipidemia. Continue statin. Moreno's esophagus. Currently on proton pump inhibitor. Deep venous thrombosis prophylaxis.As per surgery Subjective He is a 73-year-old male who is status post right colectomy and partial small bowel resection for colon mass concerning for malignancy. The patient is currently on full liquid diet. X-ray shows ileus and not able to eat much because of nausea. Medical service consulted for low urine output. 07/11 Patient was seen and examined in medical floor Complains to have some abdominal distention without any nausea and/or vomiting Bowel is moving Physical Exam 2 Vital Signs (Past 24 Hours): Last Vital Signs Temp 36.7 C 07/11/18 15:01 Pulse 63 07/11/18 15:01 Resp 16 07/11/18 15:01 BP 120/74 07/11/18 15:01 Pulse Ox 95 07/11/18 15:01 Constitutional: WD/WN, vitals as above Eyes: PERRL, conjunctivae normal, anicteric sclerae ENMT: external ear and nose normal, oropharynx normal Respiratory: normal respiratory effort, lungs clear to auscultation Cardiovascular: Rate/Rhythm: regular rate and regular rhythm Heart Sounds: normal S1 and normal S2 Gastrointestinal (Abdomen): Inspection/Auscultation: + abdomen distended; + abnormal bowel sounds (Very sluggish bowels) Percussion/Palpation: + abdomen tender and abdomen soft Neurologic: Alert, awake and oriented Results & Data Laboratory Results Short CBC 07/11/18 Range/Units 05:15 WBC 11.93 H (4.8-10.8) K/uL Hgb 9.9 L (14.0-18.0) g/dL Hct 30.2 L (42-52) % Plt Count 273 (130-400) K/uL [facility] 07/11/18 05:15 Sodium 137 Potassium 3.0 L Chloride 104 Carbon Dioxide 28 BUN 16 Creatinine 0.98 Glucose 123 H Calcium 7.7 L Medications Administered Current Inpatient Medications Acetaminophen/Codeine Phosphate (Tylenol W/Codeine #3) 2 tab PO Q4H PRN PRN Reason: Pain Stop: 08/08/18 09:46 Last Admin: 07/11/18 11:52 Dose: 1 tab Albuterol (Ventolin Hfa) 1 puffs INH QID PRN PRN Reason: Wheezing Stop: 08/04/18 13:59 Aspirin (Aspirin Chew) 81 mg PO QAM [facility] Stop: 08/06/18 08:59 Last Admin: 07/11/18 11:52 Dose: 81 mg Atorvastatin Calcium (Lipitor) 40 mg PO PM [facility] Stop: 08/09/18 20:59 Last Admin: 07/10/18 21:10 Dose: 40 mg Clopidogrel Bisulfate (Plavix) 75 mg PO QAM [facility] Stop: 08/09/18 08:59 Last Admin: 07/11/18 08:36 Dose: 75 mg Pantoprazole Sodium 40 mg/ (Syringe) 10 mls @ 5 mls/min IV BID [facility] Stop: 08/06/18 20:59 Last Admin: 07/11/18 08:36 Dose: 5 mls/min Potassium Chloride/Dextrose/Sod Cl (D5w And 1/2nss + 40meq Kcl) 40 meq in 1, 000 mls @ 75 mls/hr IV .[id number] [facility] Stop: 08/10/18 07:44 Last Infusion: 07/11/18 14:31 Dose: 75 mls/hr Lisinopril (Zestril) 10 mg PO HS [facility] Stop: 08/10/18 20:59 Metoprolol Tartrate (Lopressor) 25 mg PO BID [facility] Stop: 08/04/18 20:59 Last Admin: 07/11/18 08:35 Dose: 25 mg Mometasone Furoate/Formoterol Fumar (Dulera Inhaler) 2 ea INH BID [facility] Stop: 08/06/18 20:59 Last Admin: 07/11/18 08:35 Dose: 2 ea Nitroglycerin (Nitrostat) 0.4 mg SL UD PRN PRN Reason: ANGINA Stop: 08/04/18 13:29 Ondansetron HCl (Zofran) 4 mg IV Q4H PRN PRN Reason: Nausea And Vomiting Stop: 08/04/18 13:29 Last Admin: 07/11/18 01:14 Dose: 4 mg Tamsulosin HCl (Flomax) 0.4 mg PO [facility] Stop: 08/07/18 11:29 Last Admin: 07/11/18 08:35 Dose: 0.4 mg
[2018-07-11] MEDS: ATORVASTATIN 40 MG TAB PO SCH (20:29)
[2018-07-11] MEDS ORDERED: LISINOPRIL 10 MG TAB PO SCH (21:00)
[2018-07-11] MEDS ORDERED: PROMETHAZINE HCL 12.5 MG in SODIUM CHLORIDE 0.9% 50 ML IV PRN (21:58)
[2018-07-12 06:50] LABS: Basophils # (auto) 0.01 K/uL (0-0.2); Basophils % (auto) 0.1 %; Eosinophils # (auto) 0.01 K/uL (0-0.5); Eosinophils % (auto) 0.1 %; Hemoglobin 9.4 g/dL (14.0-18.0); Immature Granulocytes # (auto) 0.05 K/uL (0.00-0.02); Immature Granulocytes % (auto) 0.4 %; Lymphocytes # (auto) 0.43 K/uL (1.2-3.4); Lymphocytes % (auto) 3.4 %; Mean Corpuscular Hgb Conc 32.4 g/dL (32-36); Mean Corpuscular Volume 76.9 fL (80-100); Mean Platelet Volume 9.3 fL (7.4-10.4); Monocytes # (auto) 0.83 K/uL (0.11-0.59); Monocytes % (auto) 6.6 %; Neutrophils # (auto) 11.27 K/uL (1.4-6.5); Neutrophils % (auto) 89.4 %; Platelet Count 247 K/uL (130-400); RDW Coefficient of Variation 15.2 % (11.5-14.5); RDW Standard Deviation 42.7 fL (36.4-46.3); Red Blood Count 3.77 M/uL (4.7-6.1)
--- NOTE | 2018-07-12 06:51 | Surgery Progress Note ---
Date of Service July 12, 2018 Assessment & Plan (1) Colonic mass: POD 7 will insert picc line and start hyperal until bowel function returns check chest xray POD 6 gi function slow to return may need nutritional supplement (hyper al) will try adding boost suspect edema anastomosis hope will resolve in few days POD 5 increase activity keep iv fluids until oral intake better transfer to reg floor POD 4 gi function and peristalsis slow will need to watch closely check prp d/c mefoxin increase iv fluids Dr Casiano covering weekend POD 3 right colectomy, partial SB rsxn seen with Dr. Leonardo d/c DANYA, Iniguez H&H stable 03/15, Cr normalized PT/OT clear liquids, IV decreased to 80 cc/hr will remove drain later today Subjective weak, had drainage from lower aspect incision while up(bloody serous) passing flatus small bm oral intake poor Physical Exam 2 Vital Signs (Past 24 Hours): Last Vital Signs Temp 37.1 C 07/11/18 22:16 Pulse 75 07/11/18 22:16 Resp 16 07/11/18 22:16 BP 117/74 07/11/18 22:16 Pulse Ox 96 07/11/18 22:16 Physical Exam: alert in no distress coughing non productive Gastrointestinal (Abdomen): distended but soft lower aspect incision opening from sub cut alma site minimal serous drainage
[2018-07-12] MEDS ORDERED: TPN/PPN CONSULT PHARMACY PRN (06:57)
[2018-07-12 07:22] LABS: Calcium 7.5 mg/dl (8.5-10.1); Creatinine Clr Calc Pharmacy 58.8 ml/min; Est GFR (African American) 82.6; Est GFR (Non-African American) 71.2; Magnesium 1.7 mg/dl (1.8-2.4); Potassium 4.5 mmol/L (3.5-5.1)
--- NOTE | 2018-07-12 08:22 | XRay Report ---
XR chest 2V routine CLINICAL HISTORY: 73 years-old Male presenting with coughing. TECHNIQUE: PA and lateral views of the chest were obtained. COMPARISON: 07/09/2018. FINDINGS: Atherosclerosis and tortuosity of the thoracic aorta. Cardiac silhouette normal in size. Hyperinflate d lungs. Diffusely coarsened lung parenchyma with dense reticular opacities throughout the right lung with a mid to basilar predominance and to a lesser extent in the mid to basilar left lung. These loc gulshan to the lower lobes and posterior upper lobes. These are new from prior. No pleural effusion or pneumothorax. Degenerative changes of the thoracic spine. Slightly exaggerated thoracic kyphosis with mid thoracic spine vertebral body height loss. Gaseous distended bowel loops. IMPRESSION: 1. Interval development of significant infiltrates most severely affecting the right lower lobe as w ell as the left lower lobe and posterior segments of the upper lobes to a lesser extent. This is high ly concerning for either aspiration or multifocal pneumonia. 2. Background emphysema. Electronically signed by: Alfredo Sadler M.D. 07/12/2018 8:21 AM
[2018-07-12] MEDS: METOPROLOL TARTRATE 25 MG TAB PO SCH ×2 (09:38→20:22)
[2018-07-12] MEDS: ASPIRIN 81 MG CHEW PO SCH (09:43)
[2018-07-12] MEDS: TAMSULOSIN HCL 0.4 MG CAP PO SCH (09:46)
[2018-07-12] MEDS: CLOPIDOGREL BISULFATE 75 MG TAB PO SCH (09:47)
[2018-07-12] MEDS: MOMETASONE/FORMOTEROL INH SCH ×2 (09:49→20:20)
[2018-07-12] MEDS: PANTOprazole 40 MG in SYRINGE 0 ML IV SCH (09:51)
[2018-07-12] MEDS: D5W AND 1/2NSS + 40MEQ KCL 40 MEQ/1,000 ML BAG IV SCH (09:52)
[2018-07-12] MEDS ORDERED: PIPERACILL/TAZOBAC CONSULT ACTIVE PRN (11:47)
[2018-07-12] MEDS ORDERED: VANCOMYCIN HCL 1,000 MG/270 ML BAG IV STA (11:47)
[2018-07-12] MEDS ORDERED: VANCOMYCIN CONSULT ACTIVE PRN (11:47)
[2018-07-12] MEDS ORDERED: PIPERACILLIN/TAZOBACTAM 4.5 GM in DEXTROSE 5% 100 ML IV STA (12:00)
[2018-07-12] MEDS ORDERED: VANCOMYCIN HCL 1,750 MG in SODIUM CHLORIDE 0.9% 500 ML IV STA (12:03)
--- NOTE | 2018-07-12 13:53 | Hospitalist Progress Note ---
Date of Service July 12, 2018 Assessment & Plan (1) Pneumonia: The patient has developed pneumonia, bibasilar, right more than the left Likely secondary to aspiration Increased white count with increased poly No fever but has cough but no increasing shortness of breath with history of COPD We will start on intravenous Zosyn and vancomycin Nasal swab to rule out MRSA (2) Colonic mass: Colonic mass concerning for malignancy, Status post right colectomy with partial small bowel resection, Currently on full liquid diet, postoperative ileus. He is having liquidy stools, not eating much because of nausea. p Slow improvement Total urine output last 24 hours is more than 600 mL We will continue current management Management as per surgery Nutrition support Will have parenteral nutrition since bowel sounds return and patient can take with food orally Will give IV phosphate supplement Hypokalemia. On potassium supplemented with the fluids. Potassium has been supplemented Monitor- EYES: Pupils round equal and react to light, extraocular movements full, no injection. History of coronary artery disease status post stents, on aspirin, Plavix, and Lopressor and statin. Currently stable. History of hypertension, on Lopressor, lisinopril is on hold. Hold his lisinopril as his blood pressure on the lower side. History of chronic obstructive pulmonary disease. Continue home inhalers, currently stable. Hyperlipidemia. Continue statin. Moreno's esophagus. Currently on proton pump inhibitor. Deep venous thrombosis prophylaxis.As per surgery Subjective He is a 73-year-old male who is status post right colectomy and partial small bowel resection for colon mass concerning for malignancy. The patient is currently on full liquid diet. X-ray shows ileus and not able to eat much because of nausea. Medical service consulted for low urine output. 07/11 Patient was seen and examined in medical floor Complains to have some abdominal distention without any nausea and/or vomiting Bowel is moving 07/12 Patient was seen and examined He has been complaining of some abdominal pain and distention Complains to have occasional cough as well Denies any shortness of breath, fever and/or chills Discussed with the surgeon and was informed that he is developing hospital- acquired pneumonia seems to be likely secondary to aspiration Physical Exam 2 Vital Signs (Past 24 Hours): Last Vital Signs Temp 36.4 C L 07/12/18 11:55 Pulse 101 H 07/12/18 11:55 Resp 16 07/12/18 11:55 BP 86/60 L 02/26/19 11:55 Pulse Ox 93 07/12/18 11:55 Physical Exam: Minimal distress at rest Constitutional: WD/WN, vitals as above + ill appearing and + thin Eyes: PERRL, conjunctivae normal, anicteric sclerae ENMT: external ear and nose normal, oropharynx normal Respiratory: normal respiratory effort, lungs clear to auscultation Cardiovascular: Rate/Rhythm: regular rate and regular rhythm Heart Sounds: normal S1 and normal S2 Gastrointestinal (Abdomen): Inspection/Auscultation: + abdomen distended; + abnormal bowel sounds (Very sluggish bowels) Percussion/Palpation: + abdomen tender and abdomen soft Neurologic: Alert, awake and oriented x3. Generally weak and lethargic Results & Data Laboratory Results Short CBC 07/12/18 Range/Units 06:36 WBC 12.60 H (4.8-10.8) K/uL Hgb 9.4 L (14.0-18.0) g/dL Hct 29.0 L (42-52) % Plt Count 247 (130-400) K/uL BMP 07/12/18 06:36 Sodium 135 L Potassium 4.5 D Chloride 106 Carbon Dioxide 23 BUN 15 Creatinine 1.03 Glucose 118 H Calcium 7.5 L Diagnostic Findings CXR ; 1. Interval development of significant infiltrates most severely affecting the right lower lobe as well as the left lower lobe and posterior segments of the upper lobes to a lesser extent. This is highly concerning for either aspiration or multifocal pneumonia. 2. Background emphysema. Medications Administered Current Inpatient Medications Acetaminophen/Codeine Phosphate (Tylenol W/Codeine #3) 2 tab PO Q4H PRN PRN Reason: Pain Stop: 08/08/18 09:46 Last Admin: 07/11/18 20:28 Dose: 1 tab Albuterol (Ventolin Hfa) 1 puffs INH QID PRN PRN Reason: Wheezing Stop: 08/04/18 13:59 Aspirin (Aspirin Chew) 81 mg PO QAM [facility] Stop: 08/06/18 08:59 Last Admin: 07/12/18 09:43 Dose: 81 mg Atorvastatin Calcium (Lipitor) 40 mg PO PM ANDRES Stop: 08/09/18 20:59 Last Admin: 07/11/18 20:29 Dose: 40 mg Clopidogrel Bisulfate (Plavix) 75 mg PO QAM [facility] Stop: 08/09/18 08:59 Last Admin: 07/12/18 09:47 Dose: 75 mg Potassium Chloride/Dextrose/Sod Cl (D5w And 1/2nss + 40meq Kcl) 40 meq in 1, 000 mls @ 75 mls/hr IV .[id number] ANDRES Stop: 07/12/18 15:59 Last Infusion: 07/12/18 13:41 Dose: 75 mls/hr Promethazine HCl 12.5 mg/ (Sodium Chloride) 50.5 mls @ 202 mls/hr IV Q6H PRN PRN Reason: Nausea And Vomiting Stop: 08/10/18 21:57 Last Infusion: 07/11/18 23:19 Dose: Infused Vancomycin HCl 1,750 mg/ (Sodium Chloride) 535 mls @ 200 mls/hr IV NOW STA Stop: 07/12/18 14:43 Last Admin: 07/12/18 12:45 Dose: 200 mls/hr Dextrose (D10w) 1,000 mls @ 0 mls/hr IV .Q0M [facility] Stop: 08/11/18 15:59 Lisinopril (Zestril) 10 mg PO HS [facility] Stop: 08/10/18 20:59 Metoprolol Tartrate (Lopressor) 25 mg PO BID [facility] Stop: 08/04/18 20:59 Last Admin: 07/12/18 09:38 Dose: Not Given Miscellaneous Information (Pharmacy Tpn/Ppn Consult Active) 1 ea N/A UD PRN PRN Reason: Consult Stop: 08/11/18 06:56 Miscellaneous Information (Consult) 1 ea N/A UD PRN PRN Reason: Consult Stop: 08/11/18 11:46 Miscellaneous Information (Consult) 1 ea N/A UD PRN PRN Reason: Consult Stop: 08/11/18 11:46 Mometasone Furoate/Formoterol Fumar (Dulera Inhaler) 2 ea INH BID [facility]RES Stop: 08/06/18 20:59 Last Admin: 07/12/18 09:49 Dose: 2 ea Morphine Sulfate (Morphine Sulfate) 3 mg IV Q3H PRN PRN Reason: Pain Stop: 07/25/18 21:57 Nitroglycerin (Nitrostat) 0.4 mg SL UD PRN PRN Reason: ANGINA Stop: 08/04/18 13:29 Nutrition (Parenteral) (Custom Central Pn) 1 bag IV TODAY@1600 [facility]; Protocol Stop: 07/13/18 15:59 Ondansetron HCl (Zofran) 4 mg IV Q4H PRN PRN Reason: Nausea And Vomiting Stop: 08/04/18 13:29 Last Admin: 07/11/18 20:17 Dose: 4 mg Pantoprazole Sodium (Protonix) 40 mg PO BID [facility]; Protocol Stop: 08/11/18 20:59 Tamsulosin HCl (Flomax) 0.4 mg PO QAM [facility] Stop: 08/07/18 11:29 Last Admin: 07/12/18 09:46 Dose: 0.4 mg
[2018-07-12] MEDS ORDERED: SODIUM PHOSPHATE 3 MMOL/1 ML 5 ML VIAL IV STA (14:02)
[2018-07-12] MEDS ORDERED: SODIUM PHOSPHATE 24 MMOL in SODIUM CHLORIDE 0.9% 500 ML IV ONE (14:30)
--- NOTE | 2018-07-12 14:59 | Pharmacy Report ---
Pharmacy Abx Dose Short Note - Date of Service July 12, 2018 - Assessment & Plan Assessment 73 year old M receiving vanco/zosyn for treatment of pulmonary source Day # 05/23 of antimicrobial therapy. Plan Vanco 1750mg (26mg/kg) x1 to quickly achieve a peak of 38mcg/mL Then vanco 1000mg (15mg/kg) q12 set to start at 0200 Goal trough 15-20mcg/mL Trough ordered for 07/14/18 @0130 Zosyn: EI Zosyn 3.375g IV Q8 appropriate for clinical status and eCrCl>20cc/min Pharmacy will continue to follow and will adjust dose/frequency as necessary. Thank you.
[2018-07-12] MEDS ORDERED: DEXTROSE 10% 1,000 ML IV SCH (16:00)
[2018-07-12] MEDS ORDERED: CUSTOM CENTRAL PN IV SCH (16:00)
[2018-07-12] MEDS: PIPERACILLIN/TAZOBACTAM 3.375 GM in DEXTROSE 5% 100 ML IV SCH (19:08)
[2018-07-12] MEDS: ATORVASTATIN 40 MG TAB PO SCH (20:21)
[2018-07-12] MEDS: PANTOprazole 40 MG TAB PO SCH (20:22)
[2018-07-13] MEDS ORDERED: VANCOMYCIN HCL 1,000 MG in SODIUM CHLORIDE 0.9% 250 ML IV SCH (02:00)
[2018-07-13] MEDS: PIPERACILLIN/TAZOBACTAM 3.375 GM in DEXTROSE 5% 100 ML IV SCH ×3 (02:15→18:43)
--- NOTE | 2018-07-13 06:19 | Surgery Progress Note ---
Date of Service July 13, 2018 Assessment & Plan (1) Colonic mass: POD 8 on hyper al will check acute abd series c diff path pending willl hold off increasing codeine etc to try to control frequent bm(that I expected)until abd softer and started on po intake POD 7 will insert picc line and start hyperal until bowel function returns check chest xray POD 6 gi function slow to return may need nutritional supplement (hyper al) will try adding boost suspect edema anastomosis hope will resolve in few days POD 5 increase activity keep iv fluids until oral intake better transfer to reg floor POD 4 gi function and peristalsis slow will need to watch closely check prp d/c mefoxin increase iv fluids Dr Casiano covering weekend POD 3 right colectomy, partial SB rsxn seen with Dr. Leonardo d/Geetha Sanon H&H stable 03/15, Cr normalized PT/OT clear liquids, IV decreased to 80 cc/hr will remove drain later today Subjective feels better concerned because frequent loose stools that at times can"t control denies nausea Physical Exam Vital Signs (Past 24 Hours): Last Vital Signs Temp 36.7 C 07/12/18 23:39 Pulse 76 07/12/18 23:39 Resp 16 07/12/18 23:39 BP 109/65 07/12/18 23:39 Pulse Ox 92 07/12/18 23:39 Physical Exam: alert no complaints lookes much better than yesterday Gastrointestinal (Abdomen): still distended and tympanitic non tender incision solid no further drainage from distal aspect of incision Results & Data Laboratory Results noted
[2018-07-13 06:30] LABS: Basophils # (auto) 0.01 K/uL (0-0.2); Basophils % (auto) 0.1 %; Eosinophils % (auto) 2.6 %; Hematocrit (blood only) 23.9 % (42-52); Hemoglobin 7.9 g/dL (14.0-18.0); Immature Granulocytes # (auto) 0.09 K/uL (0.00-0.02); Immature Granulocytes % (auto) 0.6 %; Lymphocytes # (auto) 1.21 K/uL (1.2-3.4); Mean Corpuscular Hgb Conc 33.1 g/dL (32-36); Mean Corpuscular Volume 76.8 fL (80-100); Mean Platelet Volume 9.7 fL (7.4-10.4); Monocytes # (auto) 1.02 K/uL (0.11-0.59); Monocytes % (auto) 6.7 %; Neutrophils # (auto) 12.48 K/uL (1.4-6.5); Platelet Count 243 K/uL (130-400); RDW Coefficient of Variation 15.7 % (11.5-14.5); RDW Standard Deviation 43.4 fL (36.4-46.3); Red Blood Count 3.11 M/uL (4.7-6.1); White Blood Count 15.21 K/uL (4.8-10.8)
[2018-07-13 07:02] LABS: Echinocytes 1+
[2018-07-13 07:12] LABS: BUN Creatinine Ratio 25.5 (10-20); Calcium 7.1 mg/dl (8.5-10.1); Est GFR (Non-African American) 78.5; Magnesium 1.6 mg/dl (1.8-2.4); Phosphorus 2.7 mg/dl (2.5-4.9); Potassium 3.4 mmol/L (3.5-5.1)
--- NOTE | 2018-07-13 08:38 | XRay Report ---
XR abdomen 2V w PA chest HISTORY: 73 years-old Male follow up lack of peristalsis follow-up study in a patient with acute cou gh COMPARISON: Chest radiographs 07/12/2018. TECHNIQUE: PA view the chest with erect and supine views of the abdomen FINDINGS: A right-sided PICC has been placed, distal tip terminating within the expected location of the inferi or right atrium. There is no pneumothorax or large pleural effusion. Bilateral mixed interstitial and alveolar opacities are redemonstrated with slightly improved aeration about the right lung base. Lef t hemidiaphragmatic calcifications. Calcification the thoracic aortic arch. Emphysema without overt p ulmonary edema. Skin nettie project over the lower abdomen. Multiple air and fluid-filled loops of small bowel with air-fluid levels are noted measuring up to approximately 5.9 cm transversely. Surgical suture materia l projects over the right abdomen. No significant air seen within the large bowel. No definite pneuma tosis or pneumoperitoneum. No urolith. Degenerative changes of the spine, pelvis and hips. IMPRESSION: 1. Bilateral mixed interstitial and alveolar opacities redemonstrated with slightly improved aeration about the right lung base. Findings are again concerning for multifocal pneumonia or aspiration pneu monitis. 2. Emphysema. 3. Multiple dilated loops of small bowel with air-fluid levels is suggestive of postoperative ileus. Follow-up recommended. The above report was generated using voice recognition software. It may contain grammatical, syntax o r spelling errors. Electronically signed by: Jonn Garner M.D. 07/13/2018 8:37 AM
[2018-07-13] MEDS: CLOPIDOGREL BISULFATE 75 MG TAB PO SCH (08:49)
[2018-07-13] MEDS: METOPROLOL TARTRATE 25 MG TAB PO SCH ×2 (08:49→21:43)
[2018-07-13] MEDS: TAMSULOSIN HCL 0.4 MG CAP PO SCH (08:50)
[2018-07-13] MEDS: PANTOprazole 40 MG TAB PO SCH ×2 (08:50→21:43)
[2018-07-13] MEDS: MOMETASONE/FORMOTEROL INH SCH ×2 (08:50→21:42)
[2018-07-13] MEDS: ASPIRIN 81 MG CHEW PO SCH (08:57)
[2018-07-13] MEDS: ACETAMINOPHEN W/CODEINE #3 1 TAB PO PRN ×2 (09:00→14:35)
[2018-07-13] MEDS ORDERED: POTASSIUM CHLORIDE 20 MEQ/15 ML UDC PO ONE (09:15)
[2018-07-13] MEDS: MAGNESIUM SULFATE / D5W 1 GM/100 ML BAG IV SCH ×2 (10:28→11:39)
--- NOTE | 2018-07-13 14:10 | Surgery Progress Note ---
Date of Service July 13, 2018 Assessment & Plan (1) Colonic mass: Insert NG tube NPO All questions answered. Subjective Pt reports that he is feeling nauseous and bloated. Reports that he is is passing flatus and moving his bowels. He denies pain. Physical Exam Vital Signs (Past 24 Hours): Last Vital Signs Temp 36.4 C L 07/13/18 12:11 Pulse 72 07/13/18 12:11 Resp 18 07/13/18 12:11 BP 100/60 07/13/18 12:11 Pulse Ox 96 07/13/18 12:11
[2018-07-13] MEDS ORDERED: ACETAMINOPHEN 65 ML IV PRN (14:15)
[2018-07-13] MEDS ORDERED: CUSTOM CENTRAL PN IV SCH (16:00)
[2018-07-13] MEDS: ONDANSETRON INJ 2 MG/ML 2 ML VIAL IV PRN (16:08)
--- NOTE | 2018-07-13 17:32 | XRay Report ---
XR KUB CLINICAL HISTORY: Check NG tube placement COMPARISON STUDY: Earlier in the day FINDINGS: There is a nasogastric tube with its tip projected over the gastric cardia. The proximal si dehole is located within the distal esophagus. There are multiple dilated small bowel loops measuring up to 6 cm in diameter. IMPRESSION: 1. Dilated small bowel loops measuring up to 6 cm 2. Interval placement of a nasogastric tube. The tip projects over the gastric cardia. The proximal s idehole is positioned within the distal esophagus Electronically signed by: Israel Leiva M.D. 07/13/2018 5:30 PM
--- NOTE | 2018-07-13 19:11 | Hospitalist Progress Note ---
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 HTN Continue current meds Hold lisinopril for now H/O COPD: Continue home inhalers stable Hyperlipidemia Continue statin. Moreno's esophagus Continue PPI DVT Px: As per surgery Subjective Patient is seen and examined at bedside Reports nausea, some abdominal pain, bloating NG tube was placed Also reports cough with clear expectoration No other complaints Physical Exam Vital Signs (Past 24 Hours): Last Vital Signs Temp 36.7 C 07/13/18 15:01 Pulse 73 07/13/18 15:01 Resp 16 07/13/18 15:01 BP 109/75 07/13/18 15:01 Pulse Ox 95 07/13/18 15:01 Physical Exam: Physical Exam: Vitals signs as noted above General Appearance:Moderately built and nourished, no apparent distress Head: normocephalic, Atraumatic Eyes: normal inspection, EOMI Neck: supple, Trachea midline Respiratory/Chest: Normal breath sounds, +basal rales Cardiovascular: S1, S2, No murmur Abdomen/GI:Soft, Non tender, Bowel sounds present, +Surgical site in dressing Extremities/Musculoskelatal:normal inspection, Trace edema Neurologic/Psych:AAOX3, grossly no focal neurological deficits Skin: normal color, warm Results & Data Laboratory Results Short CBC 07/13/18 Range/Units 06:05 WBC 15.21 H (4.8-10.8) K/uL Hgb 7.9 L (14.0-18.0) g/dL Hct 23.9 L (42-52) % Plt Count 243 (130-400) K/uL BMP 07/13/18 06:05 Sodium 135 L Potassium 3.4 L D Chloride 108 H Carbon Dioxide 21 BUN 24 H D Creatinine 0.95 Glucose 115 H Calcium 7.1 L
[2018-07-13] MEDS: MoRPHine SULFATE 4 MG/ML 1 ML CARP\\VIAL IV PRN (21:43)
[2018-07-13] MEDS: ATORVASTATIN 40 MG TAB PO SCH (21:43)
[2018-07-14] MEDS ORDERED: VANCOMYCIN TROUGH ONE (01:30)
[2018-07-14] MEDS: PIPERACILLIN/TAZOBACTAM 3.375 GM in DEXTROSE 5% 100 ML IV SCH ×3 (02:34→20:05)
[2018-07-14] MEDS: MoRPHine SULFATE 4 MG/ML 1 ML CARP\\VIAL IV PRN (02:56)
[2018-07-14] MEDS ORDERED: SODIUM CHLORIDE 0.9% 1000ML 500 ML IV ONE (06:10)
--- NOTE | 2018-07-14 06:39 | Surgery Progress Note ---
Date of Service July 14, 2018 Assessment & Plan (1) Colonic mass: POD 9 will continue with hyper al suspect will take bit longer for gi function to return may need ct scan with oral contrast if ng out put remains high will give fluid bolus now Insert NG tube NPO All questions answered. Subjective states feels bit better since ng tube in but still has some abd pain Physical Exam 2 Vital Signs (Past 24 Hours): Last Vital Signs Temp 37.5 C 07/14/18 00:00 Pulse 111 H 07/14/18 00:00 Resp 16 07/14/18 00:00 BP 107/70 07/14/18 00:00 Pulse Ox 91 07/14/18 00:00 Physical Exam: alert in no distress ng in place toungue bit dry not scaling Gastrointestinal (Abdomen): bit softer but still tympanitic incision intact no drainage on dressing Results & Data Laboratory Results pending Diagnostic Findings kub post ng tube insertion still mod gas small bowel some minimal colon
[2018-07-14 07:23] LABS: Basophils # (auto) 0.02 K/uL (0-0.2); Basophils % (auto) 0.1 %; Eosinophils # (auto) 0.17 K/uL (0-0.5); Eosinophils % (auto) 1.2 %; Hematocrit (blood only) 22.9 % (42-52); Hemoglobin 7.6 g/dL (14.0-18.0); Immature Granulocytes # (auto) 0.15 K/uL (0.00-0.02); Immature Granulocytes % (auto) 1.1 %; Lymphocytes # (auto) 0.83 K/uL (1.2-3.4); Mean Corpuscular Hgb Conc 33.2 g/dL (32-36); Mean Corpuscular Volume 77.9 fL (80-100); Mean Platelet Volume 9.8 fL (7.4-10.4); Monocytes # (auto) 0.96 K/uL (0.11-0.59); Neutrophils # (auto) 11.64 K/uL (1.4-6.5); Neutrophils % (auto) 84.6 %; Platelet Count 255 K/uL (130-400); RDW Coefficient of Variation 16.1 % (11.5-14.5); RDW Standard Deviation 45.3 fL (36.4-46.3); Red Blood Count 2.94 M/uL (4.7-6.1); White Blood Count 13.77 K/uL (4.8-10.8)
[2018-07-14 07:55] LABS: Echinocytes 1+
[2018-07-14 08:05] LABS: Alanine Aminotransferase 18 U/L (12-78); Albumin Level 1.6 gm/dl (3.4-5.0); Alkaline Phosphatase 55 U/L (45-117); Aspartate Aminotransferase 11 U/L (15-37); BUN Creatinine Ratio 35.1 (10-20); Bilirubin Direct < 0.1 mg/dl (0-0.2); Bilirubin,Total 0.3 mg/dl (0.2-1); Blood Urea Nitrogen 32 mg/dl (7-18); Calcium 7.2 mg/dl (8.5-10.1); Carbon Dioxide 26 mmol/L (21-32); Chloride 107 mmol/L (98-107); Creatinine Clr Calc Pharmacy 69.7 ml/min; Est GFR (African American) 97.2; Est GFR (Non-African American) 83.8; Glucose 128 mg/dl (70-99); Magnesium 2.1 mg/dl (1.8-2.4); Potassium 4.4 mmol/L (3.5-5.1); Sodium 137 mmol/L (136-145); Total Protein 4.6 gm/dl (6.4-8.2)
[2018-07-14] MEDS: TAMSULOSIN HCL 0.4 MG CAP PO SCH (09:23)
[2018-07-14] MEDS: ASPIRIN 81 MG CHEW PO SCH (09:23)
[2018-07-14] MEDS: PANTOprazole 40 MG TAB PO SCH ×2 (09:24→20:07)
[2018-07-14] MEDS: CLOPIDOGREL BISULFATE 75 MG TAB PO SCH (09:24)
[2018-07-14] MEDS: METOPROLOL TARTRATE 25 MG TAB PO SCH ×2 (09:24→20:07)
[2018-07-14] MEDS: MOMETASONE/FORMOTEROL INH SCH ×2 (10:15→20:07)
[2018-07-14] MEDS ORDERED: CUSTOM CENTRAL PN IV SCH (16:00)
--- NOTE | 2018-07-14 18:25 | Hospitalist Progress Note ---
Date of Service July 14, 2018 Assessment & Plan (1) Pneumonia: Pneumonia, bibasilar, right more than the left Likely secondary to aspiration Continue Zosyn Day # 3 MRSA screen:Negative Vancomycin discontinued (2) Colonic mass: Colonic mass concerning for malignancy S/P right colectomy with partial small bowel resection NPO NG tube placed Continue Parenteral nutrition Appreciate Surgery Input Continue wound Care Pain is controlled No BM today Hypokalemia Hypomagnesemia Replace electrolytes as needed H/O CAD S/P stents Continue aspirin, Plavix, Lopressor and statin stable. HTN Continue Metoprolol Hold lisinopril for now H/O COPD: Continue home inhalers stable Hyperlipidemia Continue statin. Moreno's esophagus Continue PPI DVT Px: As per surgery Subjective Patient is seen and examined at bedside Has mild abdominal pain Has nausea--better after NG tube placement Denies any chest pain, SOB, dizziness No other complaints Physical Exam Vital Signs (Past 24 Hours): Last Vital Signs Temp 37.2 C 07/14/18 14:58 Pulse 93 H 07/14/18 14:58 Resp 20 07/14/18 14:58 BP 112/74 07/14/18 14:58 Pulse Ox 92 07/14/18 14:58 Physical Exam: Physical Exam: Vitals signs as noted above General Appearance:Moderately built and nourished, no apparent distress Head: normocephalic, Atraumatic Eyes: normal inspection, EOMI Neck: supple, Trachea midline Respiratory/Chest: Normal breath sounds, +basal rales Cardiovascular: S1, S2, No murmur Abdomen/GI:Soft, Non tender, Bowel sounds present, +Surgical site in dressing Extremities/Musculoskelatal:normal inspection, Trace edema Neurologic/Psych:AAOX3, grossly no focal neurological deficits Skin: normal color, warm Results & Data Laboratory Results Short CBC 07/14/18 Range/Units 06:57 WBC 13.77 H (4.8-10.8) K/uL Hgb 7.6 L (14.0-18.0) g/dL Hct 22.9 L (42-52) % Plt Count 255 (130-400) K/uL BMP 07/14/18 06:57 Sodium 137 Potassium 4.4 D Chloride 107 Carbon Dioxide 26 BUN 32 H Creatinine 0.90 Glucose 128 H Calcium 7.2 L Liver Function 07/14/18 Range/Units 06:57 Total Bilirubin 0.3 (0.2-1) mg/dl Direct Bilirubin < 0.1 (0-0.2) mg/dl AST 11 L (15-37) U/L ALT 18 (12-78) U/L Alkaline Phosphatase 55 (45-117) U/L Albumin 1.6 L (3.4-5.0) gm/dl
[2018-07-14] MEDS: ATORVASTATIN 40 MG TAB PO SCH (20:07)
[2018-07-15] MEDS: PIPERACILLIN/TAZOBACTAM 3.375 GM in DEXTROSE 5% 100 ML IV SCH ×3 (03:05→18:59)
[2018-07-15 06:33] LABS: Basophils # (auto) 0.01 K/uL (0-0.2); Basophils % (auto) 0.1 %; Eosinophils # (auto) 0.46 K/uL (0-0.5); Eosinophils % (auto) 3.6 %; Hematocrit (blood only) 22.2 % (42-52); Hemoglobin 7.2 g/dL (14.0-18.0); Immature Granulocytes % (auto) 1.6 %; Lymphocytes # (auto) 1.08 K/uL (1.2-3.4); Lymphocytes % (auto) 8.5 %; Mean Corpuscular Hgb Conc 32.4 g/dL (32-36); Mean Corpuscular Volume 77.6 fL (80-100); Mean Platelet Volume 9.6 fL (7.4-10.4); Monocytes # (auto) 1.28 K/uL (0.11-0.59); Monocytes % (auto) 10.1 %; Neutrophils # (auto) 9.62 K/uL (1.4-6.5); Neutrophils % (auto) 76.1 %; Nucleated RBC # (auto) 0.02 K/uL (0-0); Nucleated RBC % (auto) 0.1 %; Platelet Count 271 K/uL (130-400); RDW Coefficient of Variation 16.4 % (11.5-14.5); RDW Standard Deviation 45.7 fL (36.4-46.3); Red Blood Count 2.86 M/uL (4.7-6.1); White Blood Count 12.65 K/uL (4.8-10.8)
[2018-07-15 06:56] LABS: Polychromasia 1+
[2018-07-15 07:07] LABS: BUN Creatinine Ratio 31.7 (10-20); Calcium 7.3 mg/dl (8.5-10.1); Creatinine Clr Calc Pharmacy 66.7 ml/min; Est GFR (African American) 92.2; Est GFR (Non-African American) 79.6; Magnesium 2.1 mg/dl (1.8-2.4); Potassium 4.1 mmol/L (3.5-5.1)
[2018-07-15 07:08] LABS: Phosphorus 2.5 mg/dl (2.5-4.9)
--- NOTE | 2018-07-15 12:04 | Surgery Progress Note ---
Date of Service July 15, 2018 Assessment & Plan (1) Colonic mass: POD 10 spoke with pathologist still trying to define pathology on specimen hold off transfusion (pt asym) keep ng tube in for today(apr amount) acute abd series in am continue hyperal suspected gi function would be slow to return POD 9 will continue with hyper al suspect will take bit longer for gi function to return may need ct scan with oral contrast if ng out put remains high will give fluid bolus now Insert NG tube NPO All questions answered. Subjective sitting up in chair without complaints walked in [place] without dizziness taking no pain meds loose stools dark but increased flatus Physical Exam Vital Signs (Past 24 Hours): Last Vital Signs Temp 36.9 C 07/15/18 08:41 Pulse 81 07/15/18 08:41 Resp 16 07/15/18 08:41 BP 110/72 07/15/18 08:41 Pulse Ox 94 07/15/18 08:41 Physical Exam: tongue moist ng output green tinged abd softer incision intact no cellulitis Results & Data Laboratory Results wbc dec hg 7.2
[2018-07-15] MEDS: ASPIRIN 81 MG CHEW PO SCH (12:06)
[2018-07-15] MEDS: METOPROLOL TARTRATE 25 MG TAB PO SCH ×2 (12:07→20:47)
[2018-07-15] MEDS: CLOPIDOGREL BISULFATE 75 MG TAB PO SCH (12:07)
[2018-07-15] MEDS: PANTOprazole 40 MG TAB PO SCH (12:07)
[2018-07-15] MEDS: TAMSULOSIN HCL 0.4 MG CAP PO SCH (12:07)
[2018-07-15] MEDS: MOMETASONE/FORMOTEROL INH SCH ×2 (12:12→20:48)
--- NOTE | 2018-07-15 15:21 | Pharmacy Report ---
PHA: Parenteral Nutrition Con - Date of Service July 15, 2018 - Scope Pharmacy was consulted to manage parenteral nutrition orders for this patient. - Subjective The patient is currently on day 4 of central parenteral nutrition - Objective Height: 5 ft 8 in Weight: 69 kg Diet: NPO Laboratory Data (Last 24 Hr):: 07/15/18 06:16 Sodium 139 Potassium 4.1 Chloride 108 H Carbon Dioxide 27 BUN 30 H Creatinine 0.94 Glucose 121 H Calcium 7.3 L Phosphorus 2.5 Magnesium 2.1 Nutrition Assessment:: Please refer to the Notes section of the EMR for the most recent head of biology note. - Plan For day 4 of PN administration, the following will be ordered. Patient s/p right colectomy and partial small bowel resection. Continues to be NPO per surgery. Has NG placed however utilizing for suctioning only. Surgery suspects slow GI function return and would like to continue with TPN today. Patient currently at goal with Kcals. Macronutrients Amino acids 100 grams/day Dextrose 175 grams/day Lipids 50 grams/day Micronutrients Sodium phosphate 14 MMol Sodium chloride 80 mEq Potassium acetate 80 mEq Magnesium sulfate 8.12 mEq Calcium gluconate 4.65 mEq Multivitamins 10 mL Trace Elements 1 mL Total volume 2000 mL to be infused over 24 hrs will provide ~1500 kcal/day Labs, as indicated, will be ordered per protocol Pharmacy will continue to follow and adjust parenteral nutrition orders on a daily basis. Thank you for allowing us to participate in the care of this patient.
[2018-07-15] MEDS: PANTOprazole 40 MG in SYRINGE 0 ML IV SCH ×2 (15:53→21:15)
[2018-07-15] MEDS ORDERED: CUSTOM CENTRAL PN IV SCH (16:00)
--- NOTE | 2018-07-15 18:47 | Hospitalist Progress Note ---
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 HTN Continue Metoprolol Hold lisinopril for now H/O COPD: Continue home inhalers stable Hyperlipidemia Continue statin as able Moreno's esophagus Continue PPI DVT Px: As per surgery Subjective Patient is seen and examined at bedside Doing better today +flatus Denies any chest pain, SOB, dizziness, nausea, abd pain No other complaints Physical Exam Vital Signs (Past 24 Hours): Last Vital Signs Temp 36.9 C 07/15/18 15:16 Pulse 87 07/15/18 15:16 Resp 16 07/15/18 15:16 BP 109/70 07/15/18 15:16 Pulse Ox 93 07/15/18 15:16 Physical Exam: Physical Exam: Vitals signs as noted above General Appearance:Moderately built and nourished, no apparent distress Head: normocephalic, Atraumatic Eyes: normal inspection, EOMI Neck: supple, Trachea midline Respiratory/Chest: Normal breath sounds, +basal rales Cardiovascular: S1, S2, No murmur Abdomen/GI:Soft, Non tender, Bowel sounds present, +Surgical site in dressing Extremities/Musculoskelatal:normal inspection, Trace edema Neurologic/Psych:AAOX3, grossly no focal neurological deficits Skin: normal color, warm Results & Data Laboratory Results Short CBC 07/15/18 Range/Units 06:16 WBC 12.65 H (4.8-10.8) K/uL Hgb 7.2 L (14.0-18.0) g/dL Hct 22.2 L (42-52) % Plt Count 271 (130-400) K/uL BMP 07/15/18 06:16 Sodium 139 Potassium 4.1 Chloride 108 H Carbon Dioxide 27 BUN 30 H Creatinine 0.94 Glucose 121 H Calcium 7.3 L
[2018-07-15] MEDS: ATORVASTATIN 40 MG TAB PO SCH (20:21)
[2018-07-16] MEDS: PIPERACILLIN/TAZOBACTAM 3.375 GM in DEXTROSE 5% 100 ML IV SCH ×3 (03:45→19:00)
--- NOTE | 2018-07-16 06:08 | Progress Note ---
Date of Service July 16, 2018 Assessment & Plan (1) Colonic mass: no significant chgs- leave NG, cont Tpn ambulate, ch H/H ( 7.2 yest ) await improved GI function Subjective awake, alert no distress or complaints- says he is passing flatus NG 70 last sh, 400+ prior Physical Exam Vital Signs (Past 24 Hours): Last Vital Signs Temp 36.8 C 07/15/18 22:56 Pulse 93 H 07/15/18 22:56 Resp 14 07/15/18 22:56 BP 119/72 07/15/18 22:56 Pulse Ox 91 07/15/18 22:56 abd- some distention, decreased bs, dressing dry
[2018-07-16 06:45] LABS: Hematocrit (blood only) 20.3 % (42-52); Hemoglobin 6.5 g/dL (14.0-18.0); Mean Corpuscular Volume 78.4 fL (80-100); Mean Platelet Volume 9.2 fL (7.4-10.4); Platelet Count 265 K/uL (130-400); RDW Coefficient of Variation 16.2 % (11.5-14.5); RDW Standard Deviation 46.7 fL (36.4-46.3); Red Blood Count 2.59 M/uL (4.7-6.1); White Blood Count 11.83 K/uL (4.8-10.8)
[2018-07-16 07:03] LABS: BUN Creatinine Ratio 36.4 (10-20); Calcium 7.5 mg/dl (8.5-10.1); Creatinine Clr Calc Pharmacy 80.4 ml/min; Est GFR (African American) 103.1; Est GFR (Non-African American) 88.9; Magnesium 2.1 mg/dl (1.8-2.4); Potassium 3.5 mmol/L (3.5-5.1)
[2018-07-16 07:06] LABS: Phosphorus 3.3 mg/dl (2.5-4.9)
[2018-07-16] MEDS ORDERED: SODIUM CHLORIDE 0.9% 250 ML IV PRN ×2 (07:08→07:16)
[2018-07-16] MEDS: TAMSULOSIN HCL 0.4 MG CAP PO SCH (07:45)
[2018-07-16] MEDS: ASPIRIN 81 MG CHEW PO SCH (07:45)
[2018-07-16] MEDS: MOMETASONE/FORMOTEROL INH SCH ×2 (07:45→20:46)
[2018-07-16] MEDS: METOPROLOL TARTRATE 25 MG TAB PO SCH ×2 (07:45→21:33)
[2018-07-16] MEDS: CLOPIDOGREL BISULFATE 75 MG TAB PO SCH (07:46)
[2018-07-16] MEDS: PANTOprazole 40 MG in SYRINGE 0 ML IV SCH ×2 (07:46→20:48)
--- NOTE | 2018-07-16 12:48 | XRay Report ---
XR abdomen 2V w PA chest CLINICAL HISTORY: follow up lack bowel function pneumonia dyspnea COMPARISON STUDY: 07/13/2018. 07/12/2018. FINDINGS: Persistent small bowel distention. This is similar to perhaps slightly increased in promine nce in the prior study. Nasogastric tube within the proximal gastric fundus. Parenchymal infiltrative change right to lesser extent left base appears similar. Pulmonary apices re main clear. The central catheter in the right atrium. IMPRESSION: 1. Findings suggesting partial small bowel obstruction slightly increased in prominence from the prio r study. 2. Bibasilar parenchymal infiltrative change unaltered from the prior study. The above report was generated using voice recognition software. It may contain grammatical, syntax or spelling errors. Electronically signed by: Sergo Duque M.D. 07/16/2018 12:47 PM
[2018-07-16] MEDS ORDERED: CUSTOM CENTRAL PN IV SCH (16:00)
[2018-07-16 16:25] LABS: Hematocrit (blood only) 27.2 % (42-52); Hemoglobin 8.9 g/dL (14.0-18.0)
--- NOTE | 2018-07-16 18:00 | Hospitalist Progress Note ---
Date of Service July 16, 2018 Assessment & Plan (1) Pneumonia: Pneumonia, bibasilar, right more than the left Likely secondary to aspiration Continue Zosyn Day # 5 MRSA screen:Negative Vancomycin discontinued Leukocytosis improving (2) Colonic mass: Colonic mass concerning for malignancy S/P right colectomy with partial small bowel resection NPO Continue NG tube Continue Parenteral nutrition Appreciate Surgery Input Continue wound Care Pain is controlled Pathology pending Postoperative anemia: No obvious bleeding issues S/P 1 unit PRBCs Monitor CBC Hypokalemia Hypomagnesemia Replace electrolytes as needed H/O CAD S/P stents Continue aspirin, Plavix, Lopressor and statin stable. HTN Continue Metoprolol as able Hold lisinopril for now H/O COPD: Continue home inhalers stable Hyperlipidemia Continue statin as able Moreno's esophagus Continue PPI DVT Px: As per surgery Subjective Patient is seen and examined at bedside Feels tired Hb dropped to 6.5 today Plan to transfuse 1 unit PRBC Denies any bleeding issues Denies any chest pain, SOB, abd pain Physical Exam Vital Signs (Past 24 Hours): Last Vital Signs Temp 36.8 C 07/16/18 15:01 Pulse 75 07/16/18 15:01 Resp 18 07/16/18 15:01 BP 112/65 07/16/18 15:01 Pulse Ox 96 07/16/18 15:01 Physical Exam: Physical Exam: Vitals signs as noted above General Appearance:Moderately built and nourished, no apparent distress Head: normocephalic, Atraumatic Eyes: normal inspection, EOMI Neck: supple, Trachea midline Respiratory/Chest: Normal breath sounds, CTA Cardiovascular: S1, S2, No murmur Abdomen/GI:Soft, Non tender, Bowel sounds present, +Surgical site in dressing Extremities/Musculoskelatal:normal inspection, Trace edema Neurologic/Psych:AAOX3, grossly no focal neurological deficits Skin: normal color, warm
[2018-07-16] MEDS: ATORVASTATIN 40 MG TAB PO SCH (21:33)
[2018-07-17] MEDS: PIPERACILLIN/TAZOBACTAM 3.375 GM in DEXTROSE 5% 100 ML IV SCH ×3 (03:11→19:24)
[2018-07-17 06:14] LABS: Hematocrit (blood only) 23.7 % (42-52); Hemoglobin 7.7 g/dL (14.0-18.0); Mean Corpuscular Hgb Conc 32.5 g/dL (32-36); Mean Corpuscular Volume 78.7 fL (80-100); Mean Platelet Volume 9.5 fL (7.4-10.4); Platelet Count 260 K/uL (130-400); RDW Coefficient of Variation 15.9 % (11.5-14.5); RDW Standard Deviation 45.9 fL (36.4-46.3); Red Blood Count 3.01 M/uL (4.7-6.1); White Blood Count 13.45 K/uL (4.8-10.8)
--- NOTE | 2018-07-17 06:15 | Progress Note ---
Date of Service July 17, 2018 Assessment & Plan (1) Colonic mass: improved GI function- less distended- cont NG- clamping sched cont ice only w/ Tpn slow progress Subjective vitals stable- had loose bm film yest looked a little better to me no abd pain rec 1 un RBCs Physical Exam Vital Signs (Past 24 Hours): Last Vital Signs Temp 36.8 C 07/16/18 23:40 Pulse 75 07/16/18 23:40 Resp 18 07/16/18 15:01 BP 117/70 07/16/18 23:40 Pulse Ox 95 07/16/18 23:40 abd- much softer/ less distended, nontender, decreased bowel sounds improved from yesterday
[2018-07-17 07:04] LABS: BUN Creatinine Ratio 30.9 (10-20); Calcium 7.6 mg/dl (8.5-10.1); Creatinine Clr Calc Pharmacy 78.4 ml/min; Phosphorus 3.3 mg/dl (2.5-4.9); Potassium 3.7 mmol/L (3.5-5.1)
[2018-07-17] MEDS: TAMSULOSIN HCL 0.4 MG CAP PO SCH (09:25)
[2018-07-17] MEDS: CLOPIDOGREL BISULFATE 75 MG TAB PO SCH (09:25)
[2018-07-17] MEDS: METOPROLOL TARTRATE 25 MG TAB PO SCH ×2 (09:25→20:33)
[2018-07-17] MEDS: ASPIRIN 81 MG CHEW PO SCH (09:25)
[2018-07-17] MEDS: MOMETASONE/FORMOTEROL INH SCH ×2 (09:26→20:34)
[2018-07-17] MEDS: PANTOprazole 40 MG in SYRINGE 0 ML IV SCH ×2 (09:26→20:33)
[2018-07-17] MEDS ORDERED: CUSTOM CENTRAL PN IV SCH (16:00)
--- NOTE | 2018-07-17 16:18 | Hospitalist Progress Note ---
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 HTN Continue Metoprolol as able Hold lisinopril for now H/O COPD: Continue home inhalers stable Hyperlipidemia Continue statin as able Moreno's esophagus Continue PPI DVT Px: As per surgery Subjective Patient is seen and examined at bedside Had BM today Denies bleeding issues Hb:7.7 today Denies any chest pain, SOB, abd pain No new complaints Physical Exam Vital Signs (Past 24 Hours): Last Vital Signs Temp 36.7 C 07/17/18 15:21 Pulse 74 07/17/18 15:21 Resp 20 07/17/18 15:21 BP 123/74 07/17/18 15:21 Pulse Ox 95 07/17/18 15:21 Physical Exam: Physical Exam: Vitals signs as noted above General Appearance:Moderately built and nourished, no apparent distress Head: normocephalic, Atraumatic Eyes: normal inspection, EOMI Neck: supple, Trachea midline Respiratory/Chest: Normal breath sounds, CTA Cardiovascular: S1, S2, No murmur Abdomen/GI:Soft, Non tender, Bowel sounds present, +Surgical site in dressing Extremities/Musculoskelatal:normal inspection, Trace edema Neurologic/Psych:AAOX3, grossly no focal neurological deficits Skin: normal color, warm Results & Data Laboratory Results Short CBC 07/16/18 07/17/18 Range/Units 16:14 05:49 WBC 13.45 H (4.8-10.8) K/uL Hgb 8.9 L 7.7 L (14.0-18.0) g/dL Hct 27.2 L 23.7 L (42-52) % Plt Count 260 (130-400) K/uL BMP 07/17/18 05:49 Sodium 140 Potassium 3.7 Chloride 109 H Carbon Dioxide 25 BUN 25 H Creatinine 0.80 Glucose 116 H Calcium 7.6 L
[2018-07-17 17:04] LABS: Hematocrit (blood only) 25.1 % (42-52); Hemoglobin 8.2 g/dL (14.0-18.0)
[2018-07-17] MEDS: ATORVASTATIN 40 MG TAB PO SCH (20:33)
[2018-07-18] MEDS: PIPERACILLIN/TAZOBACTAM 3.375 GM in DEXTROSE 5% 100 ML IV SCH (03:06)
[2018-07-18 06:20] LABS: Hematocrit (blood only) 23.8 % (42-52); Hemoglobin 7.6 g/dL (14.0-18.0); Mean Corpuscular Hgb Conc 31.9 g/dL (32-36); Mean Corpuscular Volume 79.3 fL (80-100); Mean Platelet Volume 9.4 fL (7.4-10.4); Platelet Count 254 K/uL (130-400); RDW Coefficient of Variation 16.2 % (11.5-14.5); RDW Standard Deviation 47.3 fL (36.4-46.3); White Blood Count 11.76 K/uL (4.8-10.8)
[2018-07-18 06:50] LABS: Calcium 7.4 mg/dl (8.5-10.1); Creatinine Clr Calc Pharmacy 74.6 ml/min; Est GFR (Non-African American) 86.3; Phosphorus 3.3 mg/dl (2.5-4.9); Potassium 3.8 mmol/L (3.5-5.1)
--- NOTE | 2018-07-18 07:13 | Surgery Progress Note ---
Date of Service July 18, 2018 Assessment & Plan (1) Colonic mass: POD 13 will d/c ng tube start clear liquids(go slow increasing diet remaining small bowel needs time to resume function) continue with hyperal discussed with pt plans of rx at this point improved GI function- less distended- cont NG- clamping sched cont ice only w/ Tpn slow progress Subjective feels much better stronger walking the halls liquid stool as expected passing flatus taking no pain meds Physical Exam Vital Signs (Past 24 Hours): Last Vital Signs Temp 36.7 C 07/17/18 23:12 Pulse 75 07/17/18 23:12 Resp 15 07/17/18 23:12 BP 121/73 07/17/18 23:12 Pulse Ox 95 07/17/18 23:12 Physical Exam: alert coherent comfortable in no distress Ng tube clamped off and on 100cc drainage last 24hr Gastrointestinal (Abdomen): Inspection/Auscultation: + abdominal surgical incision (dressing dry); abdomen not distended Percussion/Palpation: abdomen soft abd soft incision solid no tenderness Results & Data Laboratory Results noted Diagnostic Findings kub from sat looked better to me in comparison to previous one
[2018-07-18] MEDS: CLOPIDOGREL BISULFATE 75 MG TAB PO SCH (08:53)
[2018-07-18] MEDS: TAMSULOSIN HCL 0.4 MG CAP PO SCH (08:54)
[2018-07-18] MEDS: METOPROLOL TARTRATE 25 MG TAB PO SCH ×2 (08:54→20:55)
[2018-07-18] MEDS: PANTOprazole 40 MG in SYRINGE 0 ML IV SCH ×2 (08:54→20:55)
[2018-07-18] MEDS: MOMETASONE/FORMOTEROL INH SCH ×2 (08:55→20:56)
[2018-07-18] MEDS: ASPIRIN 81 MG CHEW PO SCH (08:58)
[2018-07-18] MEDS ORDERED: CUSTOM CENTRAL PN IV SCH (16:00)
[2018-07-18] MEDS: AMOXICILLIN/CLAVULANATE 875 MG TAB PO SCH (17:57)
--- NOTE | 2018-07-18 19:03 | Hospitalist Progress Note ---
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 HTN Continue Metoprolol as able Hold lisinopril for now H/O COPD: Continue home inhalers stable Hyperlipidemia Continue statin as able Moreno's esophagus Continue PPI DVT Px: As per surgery Subjective Patient is seen and examined at bedside Doing better Tolerating diet NG tube discontinued Denies bleeding issues Hb:7.6 today Denies any chest pain, SOB, abd pain No new complaints Physical Exam Vital Signs (Past 24 Hours): Last Vital Signs Temp 36.6 C 07/18/18 14:56 Pulse 69 07/18/18 14:56 Resp 18 07/18/18 14:56 BP 132/78 07/18/18 14:56 Pulse Ox 96 07/18/18 14:56 Physical Exam: Physical Exam: Vitals signs as noted above General Appearance:Moderately built and nourished, no apparent distress Head: normocephalic, Atraumatic Eyes: normal inspection, EOMI Neck: supple, Trachea midline Respiratory/Chest: Normal breath sounds, CTA Cardiovascular: S1, S2, No murmur Abdomen/GI:Soft, Non tender, Bowel sounds present, +Surgical site in dressing Extremities/Musculoskelatal:normal inspection, Trace edema Neurologic/Psych:AAOX3, grossly no focal neurological deficits Skin: normal color, warm Results & Data Laboratory Results Short CBC 07/18/18 Range/Units 06:02 WBC 11.76 H (4.8-10.8) K/uL Hgb 7.6 L (14.0-18.0) g/dL Hct 23.8 L (42-52) % Plt Count 254 (130-400) K/uL BMP 07/18/18 06:02 Sodium 138 Potassium 3.8 Chloride 108 H Carbon Dioxide 25 BUN 22 H Creatinine 0.84 Glucose 115 H Calcium 7.4 L
[2018-07-18] MEDS: ATORVASTATIN 40 MG TAB PO SCH (20:55)
[2018-07-19 06:47] LABS: Hematocrit (blood only) 24.5 % (42-52)
--- NOTE | 2018-07-19 06:51 | Surgery Progress Note ---
Date of Service July 19, 2018 Assessment & Plan (1) Colonic mass: POD 14 increase to full liquid diet continue with hyperal until so evidence of set back from oral intake POD 13 will d/c ng tube start clear liquids(go slow increasing diet remaining small bowel needs time to resume function) continue with hyperal discussed with pt plans of rx at this point improved GI function- less distended- cont NG- clamping sched cont ice only w/ Tpn slow progress Subjective fairly good day yesterday up and about tolerated liquids bm x2 liquid over night Physical Exam Vital Signs (Past 24 Hours): Last Vital Signs Temp 36.8 C 07/18/18 23:14 Pulse 76 07/18/18 23:14 Resp 18 07/18/18 23:14 BP 105/68 07/18/18 23:14 Pulse Ox 95 07/18/18 23:14 Physical Exam: comfortable Gastrointestinal (Abdomen): benign , soft
[2018-07-19 07:35] LABS: BUN Creatinine Ratio 30.4 (10-20); Calcium 7.5 mg/dl (8.5-10.1); Creatinine Clr Calc Pharmacy 76.6 ml/min; Est GFR (African American) 104.2; Est GFR (Non-African American) 89.9; Magnesium 1.9 mg/dl (1.8-2.4); Potassium 3.8 mmol/L (3.5-5.1)
[2018-07-19 07:36] LABS: Phosphorus 3.3 mg/dl (2.5-4.9)
[2018-07-19] MEDS: AMOXICILLIN/CLAVULANATE 875 MG TAB PO SCH ×2 (07:40→16:56)
[2018-07-19] MEDS: PANTOprazole 40 MG in SYRINGE 0 ML IV SCH ×2 (08:58→22:00)
[2018-07-19] MEDS: TAMSULOSIN HCL 0.4 MG CAP PO SCH (08:58)
[2018-07-19] MEDS: METOPROLOL TARTRATE 25 MG TAB PO SCH ×2 (08:58→22:05)
[2018-07-19] MEDS: ASPIRIN 81 MG CHEW PO SCH (08:58)
[2018-07-19] MEDS: MOMETASONE/FORMOTEROL INH SCH ×2 (08:58→22:00)
[2018-07-19] MEDS: CLOPIDOGREL BISULFATE 75 MG TAB PO SCH (08:58)
--- NOTE | 2018-07-19 10:33 | Pharmacy Report ---
PHA: Parenteral Nutrition Con - Date of Service July 19, 2018 - Scope Pharmacy was consulted on 07-12 to manage parenteral nutrition orders for this patient. - Subjective The patient is currently on day #8 of central parenteral nutrition - Objective Height: 5 ft 8 in Weight: 63.5 kg Diet: Clear Liquid Intake & Output (24hrs):: Intake & Output 07/17/18 07/18/18 07/19/18 07/20/18 06:59 06:59 06:59 06:59 Intake Total 651.36 / 651.36 447.72 / 447.72 930 / 930 Output Total 526 / 526 100 / 100 202 / 202 Balance 125.36 / 125.36 347.72 / 347.72 728 / 728 Weight 63.5 kg Laboratory Data (Last 24 Hr):: 07/19/18 06:26 Sodium 140 Potassium 3.8 Chloride 108 H Carbon Dioxide 25 BUN 23 H Creatinine 0.76 Glucose 109 H Calcium 7.5 L Phosphorus 3.3 Magnesium 1.9 Nutrition Assessment:: Please refer to the Notes section of the EMR for the most recent clinic specialist note. - Plan For day 8 of PN administration, the following will be ordered as below. Patient s/p right colectomy and partial small bowel resection. Started on clear liquid diet yesterday morning, continue with today. Per provider note, plan to increase to full liquid diet. Surgery would like to continue with TPN as plan is for very slow increases in diet since bowel needs time to resume function. Spoke with nurse this morning, patient continues to tolerate small amts of liquid. Denies any N/V. Patient with bowel movements. Plan: * Currently patient at goal with Kcals - will scale back today since diet improving at this time. Will decrease slowly to about ~85% of goal with kcals. Macronutrients Amino acids 100 grams/day Dextrose 125 grams/day Lipids 50 grams/day Micronutrients Sodium chloride 50 mEq Sodium acetate 50 mEq Sodium phosphate 14 mMol Potassium acetate 100 mEq Magnesium sulfate 8.12 mEq Calcium gluconate 4.65 mEq Multivitamins 10 mL Trace Elements 1 mL Total volume 2000 mL to be infused over 24 hrs will provide ~1325 kcal/day Labs, as indicated, will be ordered per protocol Pharmacy will continue to follow and adjust parenteral nutrition orders on a daily basis. Thank you for allowing us to participate in the care of this patient.
[2018-07-19 11:28] LABS: Bilirubin,Total 0.3 mg/dl (0.2-1); Prealbumin 21.8 mg/dl (20-40)
[2018-07-19] MEDS ORDERED: CUSTOM CENTRAL PN IV SCH (16:00)
--- NOTE | 2018-07-19 17:57 | Hospitalist Progress Note ---
Date of Service July 19, 2018 Assessment & Plan (1) Pneumonia: Pneumonia, bibasilar, right more than the left Likely secondary to aspiration Continue Zosyn Day # 7>> Transitioned to Augmentin MRSA screen:Negative Vancomycin discontinued (2) Colonic mass: Colonic mass concerning for malignancy S/P right colectomy with partial small bowel resection NG tube discontinued Continue Parenteral nutrition till oral intake improves Appreciate Surgery Input Continue wound Care Pain is controlled Pathology pending Clear liquid diet Advance diet as per surgery Postoperative anemia: No obvious bleeding issues S/P 1 unit PRBCs Monitor CBC Hb:8.0 today Hypokalemia Hypomagnesemia Replace electrolytes as needed H/O CAD S/P stents Continue aspirin, Plavix, Lopressor and statin stable. HTN Continue Metoprolol as able Hold lisinopril for now H/O COPD: Continue home inhalers stable Hyperlipidemia Continue statin as able Moreno's esophagus Continue PPI DVT Px: As per surgery Subjective Patient is seen and examined at bedside Reports mild abd pain 2/10 Tolerating diet Had BM Hb stable Denies any chest pain, SOB, abd pain, bleeding issues Physical Exam Vital Signs (Past 24 Hours): Last Vital Signs Temp 36.7 C 07/19/18 15:20 Pulse 74 07/19/18 15:20 Resp 17 07/19/18 15:20 BP 107/70 07/19/18 15:20 Pulse Ox 95 07/19/18 15:20 Physical Exam: Physical Exam: Vitals signs as noted above General Appearance:Moderately built and nourished, no apparent distress Head: normocephalic, Atraumatic Eyes: normal inspection, EOMI Neck: supple, Trachea midline Respiratory/Chest: Normal breath sounds, CTA Cardiovascular: S1, S2, No murmur Abdomen/GI:Soft, Non tender, Bowel sounds present, +Surgical site in dressing Extremities/Musculoskelatal:normal inspection, Trace edema Neurologic/Psych:AAOX3, grossly no focal neurological deficits Skin: normal color, warm Results & Data Laboratory Results Short CBC 07/19/18 Range/Units 06:26 Hgb 8.0 L (14.0-18.0) g/dL Hct 24.5 L (42-52) % BMP 07/19/18 06:26 Sodium 140 Potassium 3.8 Chloride 108 H Carbon Dioxide 25 BUN 23 H Creatinine 0.76 Glucose 109 H Calcium 7.5 L Liver Function 07/19/18 Range/Units 10:44 Total Bilirubin 0.3 (0.2-1) mg/dl
[2018-07-19] MEDS: ATORVASTATIN 40 MG TAB PO SCH (22:04)
[2018-07-20 06:22] LABS: Hematocrit (blood only) 24.3 % (42-52); Hemoglobin 7.7 g/dL (14.0-18.0)
[2018-07-20 06:53] LABS: BUN Creatinine Ratio 29.2 (10-20); Calcium 7.7 mg/dl (8.5-10.1); Est GFR (African American) 105.3; Est GFR (Non-African American) 90.9; Magnesium 1.8 mg/dl (1.8-2.4); Phosphorus 3.2 mg/dl (2.5-4.9); Potassium 3.7 mmol/L (3.5-5.1)
--- NOTE | 2018-07-20 08:44 | Surgery Progress Note ---
Date of Service July 20, 2018 Assessment & Plan (1) Colonic mass: POD 15 will advance to soft diet monitor calorie count, slow wean off hyperal POD 14 increase to full liquid diet continue with hyperal until so evidence of set back from oral intake POD 13 will d/c ng tube start clear liquids(go slow increasing diet remaining small bowel needs time to resume function) continue with hyperal discussed with pt plans of rx at this point improved GI function- less distended- cont NG- clamping sched cont ice only w/ Tpn slow progress Subjective tolerated liquids ok yesterday feels up easily wants to try something more of substance had 4 bm last 24hr Physical Exam Vital Signs (Past 24 Hours): Last Vital Signs Temp 36.7 C 07/20/18 07:40 Pulse 75 07/20/18 07:40 Resp 17 07/20/18 07:40 BP 112/58 L 07/20/18 07:40 Pulse Ox 94 07/20/18 07:40 Physical Exam: comfortable no complaints other than what stated on subjective Gastrointestinal (Abdomen): soft no tenderness dressing incision on for 72 hours dry
[2018-07-20] MEDS: METOPROLOL TARTRATE 25 MG TAB PO SCH ×2 (09:31→20:55)
[2018-07-20] MEDS: PANTOprazole 40 MG in SYRINGE 0 ML IV SCH ×2 (09:31→20:54)
[2018-07-20] MEDS: TAMSULOSIN HCL 0.4 MG CAP PO SCH (09:31)
[2018-07-20] MEDS: MOMETASONE/FORMOTEROL INH SCH ×2 (09:32→20:54)
[2018-07-20] MEDS: AMOXICILLIN/CLAVULANATE 875 MG TAB PO SCH ×2 (09:32→16:02)
[2018-07-20] MEDS: ASPIRIN 81 MG CHEW PO SCH (09:32)
[2018-07-20] MEDS: CLOPIDOGREL BISULFATE 75 MG TAB PO SCH (09:32)
--- NOTE | 2018-07-20 14:56 | Hospitalist Progress Note ---
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 Further evaluation pending Clear liquid diet and Advance diet as per surgery Postoperative anemia: No obvious bleeding issues S/P 1 unit PRBCs Monitor CBC Hb: Dropped to 7.7 today We will transfuse if it is below 7 Hypokalemia Hypomagnesemia Replace electrolytes as needed H/O CAD S/P stents Continue aspirin, Plavix, Lopressor and statin stable. HTN Continue Metoprolol as able Hold lisinopril for now H/O COPD: Continue home inhalers stable Hyperlipidemia Continue statin as able Moreno's esophagus Continue PPI DVT Px: As per surgery Medically stable otherwise Subjective 07/20 The patient was seen and examined in medical floor He is a status post colon surgery POD #15 Has been on TPN and tolerating advanced diet Denies any significant symptoms today Physical Exam Vital Signs (Past 24 Hours): Last Vital Signs Temp 36.7 C 07/20/18 07:40 Pulse 75 07/20/18 07:40 Resp 17 07/20/18 07:40 BP 112/58 L 07/20/18 07:40 Pulse Ox 94 07/20/18 07:40 Constitutional: WD/WN, vitals as above + thin; no acute distress Eyes: PERRL, conjunctivae normal, anicteric sclerae ENMT: external ear and nose normal, oropharynx normal Respiratory: normal respiratory effort, lungs clear to auscultation Cardiovascular: Rate/Rhythm: regular rate and regular rhythm Heart Sounds: normal S1 and normal S2 Gastrointestinal (Abdomen): Inspection/Auscultation: abdomen normal to inspection and normal bowel sounds Percussion/Palpation: + abdomen tender (Minimally tender) and abdomen soft Psychiatric: A+Ox3, euthymic affect Results & Data Laboratory Results Short CBC 07/20/18 Range/Units 05:21 Hgb 7.7 L (14.0-18.0) g/dL Hct 24.3 L (42-52) % BMP 07/20/18 05:21 Sodium 140 Potassium 3.7 Chloride 108 H Carbon Dioxide 26 BUN 22 H Creatinine 0.74 Glucose 101 H Calcium 7.7 L Medications Administered Current Inpatient Medications Acetaminophen/Codeine Phosphate (Tylenol W/Codeine #3) 2 tab PO Q4H PRN PRN Reason: Pain Stop: 08/08/18 09:46 Last Admin: 07/13/18 14:35 Dose: 2 tab Documented by: Albuterol (Ventolin Hfa) 1 puffs INH QID PRN PRN Reason: Wheezing Stop: 08/04/18 13:59 Amoxicillin/Clavulanate Potassium (Augmentin 875mg) 1 tab PO BIDM [facility]; Protocol Stop: 07/21/18 20:00 Last Admin: 07/20/18 09:32 Dose: 1 tab Documented by: [facility]ir[facility] ([facility]in Chew) [facility] [place]: 08/06/18 08:59 Last Admin: 07/20/18 09:32 Dose: 81 mg Documented by: Atorvastatin Calcium (Lipitor) 40 mg PO PM [facility] Stop: 08/09/18 20:59 Last Admin: 07/19/18 22:04 Dose: 40 mg Documented by: Clopidogrel Bisulfate (Plavix) 75 mg PO [facility] Stop: 08/09/18 08:59 Last Admin: 07/20/18 09:32 Dose: 75 mg Documented by: Heparin Sodium (Beef Lung) (Heparin Sod 10 Unit/Ml Flush) 5 ml FLUSH PRN PRN PRN Reason: PICC LINE Stop: 08/11/18 23:44 Last Admin: 07/20/18 09:35 Dose: 5 ml Documented by: Promethazine HCl 12.5 mg/ (Sodium Chloride) 50.5 mls @ 202 mls/hr IV Q6H PRN PRN Reason: Nausea And Vomiting Stop: 08/10/18 21:57 Last Infusion: 07/11/18 23:19 Dose: Infused Documented by: Dextrose (D10w) 1,000 mls @ 0 mls/hr IV .Q0M [facility] Stop: 08/11/18 15:59 Acetaminophen (Ofirmev) 65 mls @ 200 mls/hr IV Q8H PRN PRN Reason: pain Stop: 08/12/18 14:14 Pantoprazole Sodium 40 mg/ (Syringe) 10 mls @ 5 mls/min IV BID [facility] Stop: 08/14/18 14:04 Last Admin: 07/20/18 09:31 Dose: 5 mls/min Documented by: Sodium Chloride (Nss 250ml) 250 mls @ 15 mls/hr IV .[id number] PRN PRN Reason: For Transfusion Stop: 08/15/18 07:07 Sodium Chloride (Nss 250ml) 250 mls @ 15 mls/hr IV .[id number] PRN PRN Reason: For Transfusion Stop: 08/15/18 07:15 Lisinopril (Zestril) 10 mg PO HS [facility] Stop: 08/10/18 20:59 Metoprolol Tartrate (Lopressor) 25 mg PO BID [facility] Stop: 08/04/18 20:59 Last Admin: 07/20/18 09:31 Dose: 25 mg Documented by: Miscellaneous Information (Pharmacy Tpn/Ppn Consult Active) 1 ea N/A UD PRN PRN Reason: Consult Stop: 08/11/18 06:56 Mometasone Furoate/Formoterol Fumar (Dulera Inhaler) 2 ea INH BID [facility] Stop: 08/06/18 20:59 Last Admin: 07/20/18 09:32 Dose: 2 ea Documented by: Morphine Sulfate (Morphine Sulfate) 3 mg IV Q3H PRN PRN Reason: Pain Stop: 07/25/18 21:57 Last Admin: 07/14/18 02:56 Dose: 3 mg Documented by: Nitroglycerin (Nitrostat) 0.4 mg SL UD PRN PRN Reason: ANGINA Stop: 08/04/18 13:29 Nutrition (Parenteral) (Custom Central Pn) 1 bag IV TODAY@1600 [facility]; Protocol Stop: 07/20/18 15:59 Last Admin: 07/19/18 15:34 Dose: 1 bag Documented by: Nutrition (Parenteral) (Custom Central Pn) 1 bag IV TODAY@1600 [facility]; Protocol Stop: 07/21/18 15:59 Ondansetron HCl (Zofran) 4 mg IV Q4H PRN PRN Reason: Nausea And Vomiting Stop: 08/04/18 13:29 Last Admin: 07/13/18 16:08 Dose: 4 mg Documented by: Pantoprazole Sodium (Protonix) 40 mg PO BID [facility]; Protocol Stop: 08/11/18 20:59 Last Admin: 07/15/18 12:07 Dose: Not Given Documented by: Tamsulosin HCl (Flomax) 0.4 mg PO [facility] Stop: 08/07/18 11:29 Last Admin: 07/20/18 09:31 Dose: 0.4 mg Documented by:
[2018-07-20] MEDS ORDERED: CUSTOM CENTRAL PN IV SCH (16:00)
[2018-07-20] MEDS: ATORVASTATIN 40 MG TAB PO SCH (20:55)
[2018-07-21 07:19] LABS: Basophils # (auto) 0.02 K/uL (0-0.2); Basophils % (auto) 0.2 %; Eosinophils # (auto) 0.44 K/uL (0-0.5); Eosinophils % (auto) 4.5 %; Hematocrit (blood only) 26.6 % (42-52); Hemoglobin 8.5 g/dL (14.0-18.0); Immature Granulocytes # (auto) 0.15 K/uL (0.00-0.02); Immature Granulocytes % (auto) 1.5 %; Lymphocytes # (auto) 1.38 K/uL (1.2-3.4); Lymphocytes % (auto) 14.1 %; Mean Corpuscular Volume 80.6 fL (80-100); Mean Platelet Volume 9.5 fL (7.4-10.4); Monocytes # (auto) 0.51 K/uL (0.11-0.59); Monocytes % (auto) 5.2 %; Neutrophils # (auto) 7.31 K/uL (1.4-6.5); Neutrophils % (auto) 74.5 %; Platelet Count 264 K/uL (130-400); RDW Coefficient of Variation 16.5 % (11.5-14.5); RDW Standard Deviation 48.6 fL (36.4-46.3); White Blood Count 9.81 K/uL (4.8-10.8)
[2018-07-21 07:46] LABS: Microcytosis Present
[2018-07-21] MEDS: METOPROLOL TARTRATE 25 MG TAB PO SCH ×2 (07:50→21:04)
[2018-07-21] MEDS: CLOPIDOGREL BISULFATE 75 MG TAB PO SCH (07:50)
[2018-07-21] MEDS: MOMETASONE/FORMOTEROL INH SCH ×2 (07:51→21:00)
[2018-07-21] MEDS: TAMSULOSIN HCL 0.4 MG CAP PO SCH (07:51)
[2018-07-21] MEDS: PANTOprazole 40 MG in SYRINGE 0 ML IV SCH ×2 (07:51→21:04)
[2018-07-21] MEDS: AMOXICILLIN/CLAVULANATE 875 MG TAB PO SCH ×2 (07:51→17:52)
[2018-07-21] MEDS: ASPIRIN 81 MG CHEW PO SCH (07:54)
[2018-07-21 07:57] LABS: BUN Creatinine Ratio 28.2 (10-20); Calcium 7.7 mg/dl (8.5-10.1); Creatinine Clr Calc Pharmacy 61.7 ml/min; Est GFR (Non-African American) 78.5; Magnesium 1.9 mg/dl (1.8-2.4)
--- NOTE | 2018-07-21 08:07 | Surgery Progress Note ---
Date of Service July 21, 2018 Assessment & Plan (1) Colonic mass: POD 16 right colectomy, small bowel resection wean TPN d/c soon if continues to tolerate diet Subjective tolerating diet, BM starting to form Physical Exam Vital Signs (Past 24 Hours): Last Vital Signs Temp 36.8 C 07/20/18 23:05 Pulse 77 07/20/18 23:05 Resp 18 07/20/18 23:05 BP 112/73 07/20/18 23:05 Pulse Ox 95 07/20/18 23:05 Gastrointestinal (Abdomen): Inspection/Auscultation: abdomen not distended Percussion/Palpation: abdomen soft
--- NOTE | 2018-07-21 14:29 | Hospitalist Progress Note ---
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 Further evaluation pending Clear liquid diet and Advance diet as per surgery Weaning of TPN and advancing diet Tolerating well Medically stable to be discharged Postoperative anemia: No obvious bleeding issues S/P 1 unit PRBCs Monitor CBC Hb: Dropped to 7.7 today We will transfuse if it is below 7 Hemoglobin 8.5 on 07/21 Hypokalemia Hypomagnesemia Replace electrolytes as needed H/O CAD S/P stents Continue aspirin, Plavix, Lopressor and statin stable. HTN Continue Metoprolol as able Hold lisinopril for now H/O COPD: Continue home inhalers stable Hyperlipidemia Continue statin as able Moreno's esophagus Continue PPI DVT Px: As per surgery Medically stable otherwise Subjective 07/20 The patient was seen and examined in medical floor He is a status post colon surgery POD #15 Has been on TPN and tolerating advanced diet Denies any significant symptoms today 07/21 The patient was seen and examined the medical floor Remains stable without any significant symptoms Weaning of TPN and advancing diet Physical Exam Vital Signs (Past 24 Hours): Last Vital Signs Temp 37.0 C 07/21/18 07:40 Pulse 58 L 07/21/18 07:40 Resp 16 07/21/18 07:40 BP 108/69 07/21/18 07:40 Pulse Ox 95 07/21/18 07:40 Physical Exam: No apparent distress at rest Constitutional: WD/WN, vitals as above + thin; no acute distress Eyes: PERRL, conjunctivae normal, anicteric sclerae ENMT: external ear and nose normal, oropharynx normal Respiratory: normal respiratory effort, lungs clear to auscultation Cardiovascular: Rate/Rhythm: regular rate and regular rhythm Heart Sounds: normal S1 and normal S2 Gastrointestinal (Abdomen): Inspection/Auscultation: abdomen normal to inspection and normal bowel sounds Percussion/Palpation: + abdomen tender (Very minimal) and abdomen soft Neurologic: Alert, awake and oriented x3 Psychiatric: A+Ox3, euthymic affect Results & Data Laboratory Results Short CBC 07/21/18 Range/Units 07:11 WBC 9.81 (4.8-10.8) K/uL Hgb 8.5 L (14.0-18.0) g/dL Hct 26.6 L (42-52) % Plt Count 264 (130-400) K/uL BMP 07/21/18 07:11 Sodium 140 Potassium 4.0 Chloride 108 H Carbon Dioxide 26 BUN 27 H Creatinine 0.95 Glucose 100 H Calcium 7.7 L Liver Function 07/21/18 Range/Units 07:11 AST 21 (15-37) U/L ALT 35 (12-78) U/L Medications Administered Current Inpatient Medications Acetaminophen/Codeine Phosphate (Tylenol W/Codeine #3) 2 tab PO Q4H PRN PRN Reason: Pain Stop: 08/08/18 09:46 Last Admin: 07/13/18 14:35 Dose: 2 tab Documented by: Albuterol (Ventolin Hfa) 1 puffs INH QID PRN PRN Reason: Wheezing Stop: 08/04/18 13:59 Amoxicillin/Clavulanate Potassium (Augmentin 875mg) 1 tab PO BIDM [facility]; Protocol Stop: 07/21/18 20:00 Last Admin: 07/21/18 07:51 Dose: 1 tab Documented by: Aspirin (Aspirin Chew) 81 mg PO [facility] Stop: 08/06/18 08:59 Last Admin: 07/21/18 07:54 Dose: 81 mg Documented by: Atorvastatin Calcium (Lipitor) 40 mg PO PM [facility] Stop: 08/09/18 20:59 Last Admin: 07/20/18 20:55 Dose: 40 mg Documented by: [facility]og[facility] ([facility]ix) [facility] [place] [place]: 08/09/18 08:59 Last Admin: 07/21/18 07:50 Dose: 75 mg Documented by: Heparin Sodium (Beef Lung) (Heparin Sod 10 Unit/Ml Flush) 5 ml FLUSH PRN PRN PRN Reason: PICC LINE Stop: 08/11/18 23:44 Last Admin: 07/21/18 07:54 Dose: 5 ml Documented by: Promethazine HCl 12.5 mg/ (Sodium Chloride) 50.5 mls @ 202 mls/hr IV Q6H PRN PRN Reason: Nausea And Vomiting Stop: 08/10/18 21:57 Last Infusion: 07/11/18 23:19 Dose: Infused Documented by: Dextrose (D10w) 1,000 mls @ 0 mls/hr IV .Q0M [facility] Stop: 08/11/18 15:59 Acetaminophen (Ofirmev) 65 mls @ 200 mls/hr IV Q8H PRN PRN Reason: pain Stop: 08/12/18 14:14 Pantoprazole Sodium 40 mg/ (Syringe) 10 mls @ 5 mls/min IV BID [facility] Stop: 08/14/18 14:04 Last Admin: 07/21/18 07:51 Dose: 5 mls/min Documented by: Sodium Chloride (Nss 250ml) 250 mls @ 15 mls/hr IV .[id number] PRN PRN Reason: For Transfusion Stop: 08/15/18 07:07 Sodium Chloride (Nss 250ml) 250 mls @ 15 mls/hr IV .[id number] PRN PRN Reason: For Transfusion Stop: 08/15/18 07:15 Lisinopril (Zestril) 10 mg PO HS [facility] Stop: 08/10/18 20:59 Metoprolol Tartrate (Lopressor) 25 mg PO BID [facility] Stop: 08/04/18 20:59 Last Admin: 07/21/18 07:50 Dose: 25 mg Documented by: Miscellaneous Information (Pharmacy Tpn/Ppn Consult Active) 1 ea N/A UD PRN PRN Reason: Consult Stop: 08/11/18 06:56 Mometasone Furoate/Formoterol Fumar (Dulera Inhaler) 2 ea INH BID [facility] Stop: 08/06/18 20:59 Last Admin: 07/21/18 07:51 Dose: 2 ea Documented by: Morphine Sulfate (Morphine Sulfate) 3 mg IV Q3H PRN PRN Reason: Pain Stop: 07/25/18 21:57 Last Admin: 07/14/18 02:56 Dose: 3 mg Documented by: Nitroglycerin (Nitrostat) 0.4 mg SL UD PRN PRN Reason: ANGINA Stop: 08/04/18 13:29 Nutrition (Parenteral) (Custom Central Pn) 1 bag IV TODAY@1600 [facility]; Protocol Stop: 07/21/18 15:59 Last Admin: 07/20/18 16:01 Dose: 1 bag Documented by: Nutrition (Parenteral) (Custom Central Pn) 1 bag IV TODAY@1600 [facility]; Protocol Stop: 07/22/18 15:59 Ondansetron HCl (Zofran) 4 mg IV Q4H PRN PRN Reason: Nausea And Vomiting Stop: 08/04/18 13:29 Last Admin: 07/13/18 16:08 Dose: 4 mg Documented by: Pantoprazole Sodium (Protonix) 40 mg PO BID [facility]; Protocol Stop: 08/11/18 20:59 Last Admin: 07/15/18 12:07 Dose: Not Given Documented by: Tamsulosin HCl (Flomax) 0.4 mg PO QAM [facility] Stop: 08/07/18 11:29 Last Admin: 07/21/18 07:51 Dose: 0.4 mg Documented by:
--- NOTE | 2018-07-21 14:36 | Pharmacy Report ---
PHA: Parenteral Nutrition Con - Date of Service July 21, 2018 - Scope Pharmacy was consulted on 07-12 to manage parenteral nutrition orders for this patient. - Subjective The patient is currently on day # 10 of central parenteral nutrition - Objective Height: 5 ft 8 in Weight: 63.9 kg Diet: Full Liquid Intake & Output (24hrs):: Intake & Output 07/19/18 07/20/18 07/21/18 07/22/18 06:59 06:59 06:59 06:59 Intake Total 930 / 930 1570 / 1570 1185 / 1185 675 / 675 Output Total 202 / 202 851 / 851 1405 / 1405 276 / 276 Balance 728 / 728 719 / 719 -220 / -220 399 / 399 Weight 63.5 kg 64.6 kg 63.9 kg Laboratory Data (Last 24 Hr):: 07/21/18 07:11 Sodium 140 Potassium 4.0 Chloride 108 H Carbon Dioxide 26 BUN 27 H Creatinine 0.95 Glucose 100 H Calcium 7.7 L Phosphorus 3.0 Magnesium 1.9 AST 21 ALT 35 Triglycerides 98 Nutrition Assessment:: Please refer to the Notes section of the EMR for the most recent route salesman note. - Plan Plan: 07/21: Continue with weaning TPN as diet is advanced. Today's TPN will provide about ~1015 kcals which is about ~70% of goal. Discussed TPN with Dr. Leonardo and the PA and they would like to continue with current plan. They would also l bev nursing staff to start counting calories the patient consumes in order to determine if diet is increasing adequately before stopping TPN. Per nurse, patient denies any N/V and appears to be tolerating diet. Continues to take small bites at a time. Reached out to both nurse/route salesman about monitoring calorie count closely. Everyone on board and plan is to start logging calories for every meal. For day 10 of PN administration, the following will be ordered: Macronutrients Amino acids 90 grams/day Dextrose 75 grams/day Lipids 40 grams/day Micronutrients Sodium phosphate 14 MMol Sodium chloride 20 mEq Sodium acetate 50 mEq Potassium acetate 120 mEq Magnesium sulfate 12.18 mEq Calcium gluconate 4.65 mEq Multivitamins 10 mL Trace Elements 1 mL Additional additives: Total volume 2000 mL to be infused over 24 hrs will provide 1015 kcal/day Labs, as indicated, will be ordered per protocol Pharmacy will continue to follow and adjust parenteral nutrition orders on a daily basis. Thank you for allowing us to participate in the care of this patient.
[2018-07-21] MEDS ORDERED: CUSTOM CENTRAL PN IV SCH (16:00)
[2018-07-21] MEDS: ATORVASTATIN 40 MG TAB PO SCH (21:04)
[2018-07-22] MEDS: TAMSULOSIN HCL 0.4 MG CAP PO SCH (08:41)
[2018-07-22] MEDS: MOMETASONE/FORMOTEROL INH SCH (08:41)
[2018-07-22 08:42] LABS: BUN Creatinine Ratio 29.5 (10-20); Calcium 7.7 mg/dl (8.5-10.1); Creatinine Clr Calc Pharmacy 68.6 ml/min; Est GFR (African American) 99.5; Est GFR (Non-African American) 85.8; Magnesium 2.1 mg/dl (1.8-2.4); Potassium 4.1 mmol/L (3.5-5.1)
[2018-07-22] MEDS: CLOPIDOGREL BISULFATE 75 MG TAB PO SCH (08:42)
[2018-07-22] MEDS: METOPROLOL TARTRATE 25 MG TAB PO SCH (08:42)
[2018-07-22] MEDS: ASPIRIN 81 MG CHEW PO SCH (08:44)
[2018-07-22] MEDS: PANTOprazole 40 MG in SYRINGE 0 ML IV SCH (08:44)
[2018-07-22 08:45] LABS: Phosphorus 3.4 mg/dl (2.5-4.9)
--- NOTE | 2018-07-22 09:52 | Surgery Progress Note ---
Date of Service July 22, 2018 Assessment & Plan (1) Colonic mass: POD 17 right colectomy, small bowel resection had 1800 ender yesterday, full breakfast today may need antidiarrheal Subjective having more frequent BMs now every 3-4 hours, tolerating diet Physical Exam Vital Signs (Past 24 Hours): Last Vital Signs Temp 36.7 C 07/22/18 07:45 Pulse 66 07/22/18 07:45 Resp 18 07/22/18 07:45 BP 130/70 07/22/18 07:45 Pulse Ox 95 07/22/18 07:45 Gastrointestinal (Abdomen): Inspection/Auscultation: abdomen not distended Percussion/Palpation: abdomen soft
--- NOTE | 2018-07-22 16:06 | Hospitalist Progress Note ---
Date of Service July 22, 2018 Assessment & Plan (1) Pneumonia: Pneumonia, bibasilar, right more than the left Likely secondary to aspiration Continue Zosyn Day # 8>> Transitioned to Augmentin MRSA screen:Negative Vancomycin discontinued Clinically a lot better We will continue antibiotic for a total of 10 days Denies any symptoms of pneumonia Antibiotic course is finished (2) Colonic mass: Colonic mass concerning for malignancy S/P right colectomy with partial small bowel resection NG tube discontinued Continue Parenteral nutrition till oral intake improves Appreciate Surgery Input Pain is controlled 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 Further evaluation pending Clear liquid diet and Advance diet as per surgery Weaning of TPN and advancing diet Tolerating well Medically stable to be discharged Still awaiting the final pathology report Postoperative anemia: No obvious bleeding issues S/P 1 unit PRBCs Monitor CBC Hb: Dropped to 7.7 today We will transfuse if it is below 7 Hemoglobin 8.5 on 07/21 Hypokalemia Hypomagnesemia Replace electrolytes as needed Electrolytes normalized H/O CAD S/P stents Continue aspirin, Plavix, Lopressor and statin stable. HTN Continue Metoprolol as able Hold lisinopril for now H/O COPD: Continue home inhalers stable Hyperlipidemia Continue statin as able Moreno's esophagus Continue PPI DVT Px: As per surgery Medically stable to be discharged Subjective 3 The patient was seen and examined in medical floor He is a status post colon surgery POD #15 Has been on TPN and tolerating advanced diet Denies any significant symptoms today 07/21 The patient was seen and examined the medical floor Remains stable without any significant symptoms Weaning of TPN and advancing diet 07/22 Denies any significant symptoms He has been tolerating advance diet Has been moving about Ambulating without difficulty Physical Exam Vital Signs (Past 24 Hours): Last Vital Signs Temp 36.7 C 07/22/18 07:45 Pulse 66 07/22/18 07:45 Resp 18 07/22/18 07:45 BP 130/70 07/22/18 07:45 Pulse Ox 95 07/22/18 07:45 Constitutional: WD/WN, vitals as above + thin; no acute distress Eyes: PERRL, conjunctivae normal, anicteric sclerae ENMT: external ear and nose normal, oropharynx normal Respiratory: normal respiratory effort, lungs clear to auscultation Cardiovascular: Rate/Rhythm: regular rate and regular rhythm Heart Sounds: normal S1 and normal S2 Gastrointestinal (Abdomen): Inspection/Auscultation: abdomen normal to inspection and normal bowel sounds Percussion/Palpation: abdomen soft Psychiatric: A+Ox3, euthymic affect Results & Data Laboratory Results [facility] 07/22/18 07:31 Sodium 138 Potassium 4.1 Chloride 109 H Carbon Dioxide 25 BUN 25 H Creatinine 0.85 Glucose 96 Calcium 7.7 L
--- NOTE | 2018-07-23 13:09 | Discharge Summary ---
Date of Service July 27, 2018 Discharge Data Consultations 07/05/18 13:30 Consult Vascular Surgery Routine 07/10/18 21:02 Consult Hospitalist Routine Procedures Performed Operation Date: 07/05/18 07:00 Actual Procedures p Open Right Colon Resection, laparoscopy, hepatic flexure, part of transverse colon - Luis Alberto Leonardo MD, FACS
--- NOTE | 2018-07-25 13:38 | Coding Query ---
PATHOLOGY To promote full compliance with coding requirements relating to patient care, physician participation is requested in all cases of sound printer uncertainty. Please assist us with the question(s) below: Please review the Pathology report and please document any relevant diagnosis(es) below: Diagnosis(es): Thank you Nancy VARGAS
--- NOTE | 2018-07-27 05:49 | Discharge Summary ---
PRIMARY DISCHARGE DIAGNOSES: 1. Sclerosing mesenteritis. 2. Blood loss anemia. 3. Aspiration pneumonia. SECONDARY DISCHARGE DIAGNOSES: 1. Chronic obstructive pulmonary disease. 2. Hypertension. 3. Coronary artery disease. 4. Hyperlipidemia. PROCEDURE PERFORMED: Laparoscopy with open right colon resection and a partial transverse colon resection and partial small bowel resection. CONSULTATIONS: 1. Vascular surgery, Dr. Overton, intraoperative consult to assist in evaluating the intestinal blood supply. 2. [facility] hospitalist to assist in medical management. HOSPITAL COURSE: The patient is a 73-year-old male with apparent mass of the ascending colon, unable to have complete colonoscopy, taken to the operating room for further diagnosis and resection. On laparoscopy, we had identified a large mass or inflammatory process of the ascending colon. Converted the procedure to open and proceeded with a right and partial transverse colectomy. We followed this inflammatory process along the root of mesentery. We had Dr. Overton assist in evaluating blood supply to the distal small bowel, approximately 100 cm of small bowel was resected. Primary handsewn anastomosis was performed. Frozen sections showed a sclerosing type of process. The final diagnosis of sclerosing mesenteritis was also confirmed by [facility]. The patient was transferred to PCU postoperatively. He had a mild postoperative anemia, remained asymptomatic, did not require transfusion initially. His hemoglobin equilibrated at 10 and 30. His bowel function was slow to return. Nasogastric tube was removed on postoperative day 3. Iniguez catheter was also removed. Abdominal drains were removed. He was transferred to regular floor on postoperative day 5. His GI function was still slow to return. A PICC line was placed. He was started on TPN on postoperative day 7. On day 8, the NG tube was replaced for increasing bloating. He was rehydrated. His H and H continued to drift. He was transfused 1 unit of packed red blood cells when his hemoglobin was below 7. He remained above 8 for the remainder of admission. I began having increased bowel function on postoperative day 12. Nasogastric tube was then removed. He was started on advancing diet on day 14. His diet was advanced over the next 3 days slowly. We were also weaning his TPN. His hemoglobin had equilibrated at 8.5. He was independent with activity. He had been working with physical and occupational therapy. His incision was well healed. Skin nettie were removed and Steri-Strips were applied. He was stable for discharge on postoperative day 17. He had completed a course of IV Zosyn for pneumonia, presumed to be aspiration. DISCHARGE INSTRUCTIONS: Discharge home. Follow up with Dr. Leonardo in 1 week. DISCHARGE MEDICATIONS: Discharged on Tylenol #3 for frequent loose stools to take every 6 hours until his bowel movements are decreasing. Resume his other home medications, albuterol 1 inhalation q.i.d., aspirin 81 mg daily, atorvastatin 40 mg daily, Vitamin D3 1000 units daily, Plavix 75 mg daily, lisinopril 10 mg at bedtime, metoprolol 25 mg b.i.d., Dulera 2 puffs b.i.d., Nitrostat 0.4 mg as needed, omeprazole 20 mg daily.
== END 2018-07-22 14:39 | disposition home or self-care (01) | DRG 329 ==
LOC: ASU 04:47 → 2S 11:07 → 3W 07-10 08:33